=== PATIENT | female | born 1965 | race Caucasian/White ===

== ENCOUNTER 2017-08-05 03:09 | Emergency (ER) | payer OTHER ==
[2017-08-05] MEDS ORDERED: NA CHLORIDE 0.9% 1,000 ML ONE (04:01)
[2017-08-05 04:10] LABS: Absolute Lymphocytes (CBC) 2.3 K/uL (0.7-4.9); Absolute Monocytes 0.9 K/uL (0.1-1.3); Absolute Neutrophil 9.3 K/uL (1.8-8.0); Basophils % 0.7 % (0-1.3); Eosinophils % 1.5 % (0-4.4); Hematocrit 43.6 % (36.0-45.0); Lymphocytes % 17.8 % (15.3-44.8); MCH 30.4 pg (27.0-35.0); MCV 90.7 fL (80-100); MPV 7.9 fL (7.6-11.3); Monocytes % 7.3 % (3.3-12.3); RBC Red Blood Cell Count 4.81 M/uL (3.86-4.86)
[2017-08-05] MEDS ORDERED: METRONIDAZOLE 500mg IVPB 500 MG/100 ML BAG IV ONE (04:22)
[2017-08-05] MEDS ORDERED: CIPROFLOXACIN 400mg IV 400 MG/200 ML BAG IV ONE (04:22)
[2017-08-05 05:19] LABS: Urine Blood 1+ (NEG); Urine Glucose NEGATIVE (NEG); Urine Protein NEGATIVE (NEG)
[2017-08-05 05:21] LABS: Protime INR 0.95
[2017-08-05 05:25] LABS: Bicarbonate 24 mEq/L (21-31); Glucose Level 105 mg/dL (65-120); Lipase 27 U/L (22-51); Potassium 3.9 mEq/L (3.6-5.0); Sodium Level 133 mEq/L (135-145)
[2017-08-05 05:31] LABS: ALT/SGPT 22 IU/L (10-60); AST/SGOT 19 IU/L (10-42); Albumin 3.8 g/dL (3.2-5.5); Alkaline Phosphatase 76 IU/L (42-121); BUN Blood Urea Nitrogen 16 mg/dL (6-20); Bilirubin Direct < 0.1 mg/dL (0-0.2); Bilirubin Total 0.5 mg/dL (0.3-1.2); Creatine Phosphokinase 43 IU/L (22-269); Glomerular Filtration Rate > 90 mL/min (=/>90); Magnesium 1.7 mg/dL (1.8-2.5); Protein, Total 7.4 g/dL (6.0-8.3)
[2017-08-05 05:33] LABS: CKMB Creatine Kinase MB 1.1 ng/ml (0.3-4.0)
[2017-08-05] MEDS ORDERED: MAGNESIUM SULFATE 1 gm IVPB 1 GM/100 ML BAG IV ONE (06:46)
--- NOTE | 2017-08-05 07:05 | ER ---
Nurse's Notes [facility] Name: Norma Means Age: 51 yrs Sex: Female : 1965 Arrival Date: 08/05/2017 Time: 03:12 Bed 7 Private MD: Diagnosis: Abdominal tenderness;Hypomagnesemia;Constipation Presentation: 08/05 03:20 Presenting complaint: Patient states: "Started with abdominal pain two days ago. Pain ao today has radiated to the right side and right leg." Patient also complains of nausea and vomiting x1day. Transition of care: patient was not received from another setting of care. Onset of symptoms was August 03, 2016. Initial Sepsis Screen: Does the patient meet any 2 criteria? No. Patient's initial sepsis screen is negative. Does the patient have a suspected source of infection? No. Patient initial sepsis screen negative. Care prior to arrival: None. 03:20 Method Of Arrival: Ambulatory ao 03:20 Acuity: MICHAEL 3 ao Triage Assessment: 03:26 General: Appears in no apparent distress. uncomfortable, Behavior is calm, cooperative, ao appropriate for age. Pain: Complains of pain in abdomen Pain radiates to Right side and leg Pain currently is 6 out of 10 on a pain scale. EENT: No signs and/or symptoms were reported regarding the EENT system. Neuro: Level of Consciousness is awake, alert, obeys commands, Oriented to person, place, time, situation, Appropriate for age Moves all extremities. Speech is normal, Facial symmetry appears normal. Cardiovascular: No deficits noted. Capillary refill < 3 seconds Patient's skin is warm and dry. Respiratory: Airway is patent Respiratory effort is even, unlabored, Respiratory pattern is regular, symmetrical. GI: Abdomen is non-distended. GI: Reports lower abdominal pain, nausea, Pain is 6 out of 10 on a pain scale. vomiting. : No signs and/or symptoms were reported regarding the genitourinary system. Derm: No signs and/or symptoms reported regarding the dermatologic system. Musculoskeletal: No signs and/or symptoms reported regarding the musculoskeletal system. 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 - Social history:: Smoking status: Patient uses tobacco products, smokes one-half pack cigarettes per day, Patient/guardian denies using alcohol, street drugs. Screenin:28 Abuse screen: Denies threats or abuse. Denies injuries from another. Nutritional ao screening: No deficits noted. Tuberculosis screening: No symptoms or risk factors identified. Fall Risk None identified. Assessment: 03:28 General: See triage note. ao 03:29 GI: Bowel sounds present X 4 quads. Abd is soft and non tender X 4 quads. ao 04:34 Reassessment: Patient appears in no apparent distress at this time. Patient and/or ao family updated on plan of care and expected duration. Pain level reassessed. Patient is alert, oriented x 3, equal unlabored respirations, skin warm/dry/pink. Patient is in pain but refuses to take pain medication because she is afraid to get a reaction. Patient has been educated and inform to tell us if she wants pain medication. 04:48 Reassessment: Patient done with contrast at 0420. CT was notified. ao 05:38 Reassessment: Patient appears in no apparent distress at this time. Patient and/or ao family updated on plan of care and expected duration. Pain level reassessed. Patient is alert, oriented x 3, equal unlabored respirations, skin warm/dry/pink. Waiting on CT scan. 06:40 Reassessment: Patient appears in no apparent distress at this time. Patient and/or ao family updated on plan of care and expected duration. Pain level reassessed. Patient is alert, oriented x 3, equal unlabored respirations, skin warm/dry/pink. Waiting on CT report. 07:18 Reassessment: Patient appears in no apparent distress at this time. Patient and/or sg family updated on plan of care and expected duration. Pain level reassessed. Patient is alert, oriented x 3, equal unlabored respirations, skin warm/dry/pink. awaiting IV magnesium to finish infusing at this time, IV site patent, fluids infusing via IV pump, pt denies pain at the site, no swelling noted, no redness noted Patient states symptoms have not improved. Vital Signs: 03:22 BP 150 / 89; Pulse 90; Resp 16; Temp 98.2(O); Pulse Ox 94% on R/A; Weight 81.65 kg (R); ao Height 5 ft. 6 in. (167.64 cm) (R); Pain 6/10; 04:36 BP 139 / 76; Pulse 86; Resp 16; Pulse Ox 100% on R/A; Pain 0/10; ao 05:38 BP 137 / 71; Pulse 93; Resp 16; Pulse Ox 99% on R/A; Pain 6/10; ao 06:40 BP 114 / 54; Pulse 86; Resp 16; Pulse Ox 96% on R/A; ao 03:22 Body Mass Index 29.05 (81.65 kg, 167.64 cm) ao ED Course: 03:12 Patient arrived in ED. al2 03:14 Andrae Ames, RN is Primary Nurse. ao 03:22 Triage completed. ao 03:25 Arm band placed on right wrist. Patient placed in an exam room, on a stretcher, on ao pulse oximetry, Patient notified of wait time. 03:27 Christoph Martinez MD is Attending Physician. castro 03:29 Patient has correct armband on for positive identification. Pulse ox on. NIBP on. ao 03:59 X-ray completed. Portable x-ray completed in exam room. Patient tolerated procedure kw well. 03:59 XRAY Chest (1 view) In Process Unspecified. EDMS 04:11 Inserted saline lock: 22 gauge in left antecubital area, using aseptic technique. Blood ao collected. 05:50 CT Abd/Pelvis - Without Cont In Process Unspecified. EDMS 07:02 Report given to YISEL Silverman. ao 07:03 Kristel Queen MD is Referral Physician. acstro 07:18 Herrera Frederick RN is Primary Nurse. sg Administered Medications: 04:10 Drug: NS 0.9% 1000 ml Route: IV; Rate: 125 ml/hr; Site: left antecubital; ao 04:34 Drug: Flagyl 500 mg Volume: 100 ml; Route: IVPB; Rate: 200 ml/hr; Infused Over: 30 ao mins; Site: left antecubital; 06:44 Follow up: IV Status: Completed infusion ao 05:37 Drug: Cipro 400 mg Volume: 200 ml; Route: IVPB; Infused Over: 60 mins; Site: left ao antecubital; 06:44 Follow up: IV Status: Completed infusion ao 07:00 Drug: Magnesium Sulfate 1 grams Route: IVPB; Infused Over: 1 hrs; Site: left ao antecubital; 07:56 Follow up: Response: No adverse reaction; IV Status: Completed infusion sg 07:56 Not Given (Patient Refused): fentaNYL (PF) 25 mcg IVP once sg 07:56 Not Given (Patient Refused): Zofran 4 mg IVP once; over 2 minutes sg Outcome: 07:04 Discharge ordered by MD. erazo 08:02 Patient left the ED. iw Signatures: Dispatcher [employer] EDMS Herrera Frederick RN RN sg Anderson, Corey, MD MD cha Williams, Irene, RN RN iw Whitley, Kimberlee kw Ortiz, Alex, RN RN ao Love, Angelica al2
--- NOTE | 2017-08-05 07:05 | EDPHYS ---
Physician Documentation [facility] Name: Norma Means Age: 51 yrs Sex: Female : 1965 Arrival Date: 08/05/2017 Time: 03:12 Bed 7 Private MD: ED Physician Christoph Martinez HPI: 08/05 04:11 This 51 yrs old Female presents to ER via Ambulatory with complaints of castro Abdominal Pain, Nausea/Vomiting. 04:11 The patient presents to the emergency department with nausea, vomiting, abdominal pain, castro of the right upper quadrant, right lower quadrant and left lower quadrant. Onset: The symptoms/episode began/occurred yesterday. Possible causes: unknown. The symptoms are aggravated by nothing. The symptoms are alleviated by nothing. Associated signs and symptoms: Pertinent positives: abdominal pain, nausea, vomiting. Severity of symptoms: At their worst the symptoms were mild moderate in the emergency department the symptoms are unchanged. The patient has not experienced similar symptoms in the past. 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 - Social history:: Smoking status: Patient uses tobacco products, smokes one-half pack cigarettes per day, Patient/guardian denies using alcohol, street drugs. ROS: 04:12 Constitutional: Negative for fever, chills, and weight loss, Eyes: Negative for injury, castro pain, redness, and discharge, ENT: Negative for injury, pain, and discharge, Neck: Negative for injury, pain, and swelling, Cardiovascular: Negative for chest pain, palpitations, and edema, Respiratory: Negative for shortness of breath, cough, wheezing, and pleuritic chest pain, Back: Negative for injury and pain, : Negative for injury, bleeding, discharge, and swelling, MS/Extremity: Negative for injury and deformity, Skin: Negative for injury, rash, and discoloration, Neuro: Negative for headache, weakness, numbness, tingling, and seizure, Psych: Negative for depression, anxiety, suicide ideation, homicidal ideation, and hallucinations, Allergy/Immunology: Negative for hives, rash, and allergies, Endocrine: Negative for neck swelling, polydipsia, polyuria, polyphagia, and marked weight changes, Hematologic/Lymphatic: Negative for swollen nodes, abnormal bleeding, and unusual bruising. 04:12 Abdomen/GI: Positive for abdominal pain, nausea, vomiting, abdominal cramps, abdominal distension, of the right upper quadrant, left upper quadrant and right lower quadrant. Exam: 04:12 Constitutional: This is a well developed, well nourished patient who is awake, alert, castro and in no acute distress. Head/Face: Normocephalic, atraumatic. Eyes: Pupils equal round and reactive to light, extra-ocular motions intact. Lids and lashes normal. Conjunctiva and sclera are non-icteric and not injected. Cornea within normal limits. Periorbital areas with no swelling, redness, or edema. ENT: Nares patent. No nasal discharge, no septal abnormalities noted. Tympanic membranes are normal and external auditory canals are clear. Oropharynx with no redness, swelling, or masses, exudates, or evidence of obstruction, uvula midline. Mucous membranes moist. Neck: Trachea midline, no thyromegaly or masses palpated, and no cervical lymphadenopathy. Supple, full range of motion without nuchal rigidity, or vertebral point tenderness. No Meningismus. Chest/axilla: Normal chest wall appearance and motion. Nontender with no deformity. No lesions are appreciated. Cardiovascular: Regular rate and rhythm with a normal S1 and S2. No gallops, murmurs, or rubs. Normal PMI, no JVD. No pulse deficits. Respiratory: Lungs have equal breath sounds bilaterally, clear to auscultation and percussion. No rales, rhonchi or wheezes noted. No increased work of breathing, no retractions or nasal flaring. Back: No spinal tenderness. No costovertebral tenderness. Full range of motion. Skin: Warm, dry with normal turgor. Normal color with no rashes, no lesions, and no evidence of cellulitis. MS/ Extremity: Pulses equal, no cyanosis. Neurovascular intact. Full, normal range of motion. Neuro: Awake and alert, GCS 15, oriented to person, place, time, and situation. Cranial nerves II-XII grossly intact. Motor strength 5/5 in all extremities. Sensory grossly intact. Cerebellar exam normal. Normal gait. Psych: Awake, alert, with orientation to person, place and time. Behavior, mood, and affect are within normal limits. 04:12 Abdomen/GI: Inspection: distension, Bowel sounds: normal, Palpation: mild abdominal tenderness, moderate abdominal tenderness, in the right upper quadrant, right lower quadrant and left lower quadrant, Liver: no appreciated palpable abnormalities, Hernia: not appreciated. Vital Signs: 03:22 BP 150 / 89; Pulse 90; Resp 16; Temp 98.2(O); Pulse Ox 94% on R/A; Weight 81.65 kg (R); ao Height 5 ft. 6 in. (167.64 cm) (R); Pain 6/10; 04:36 BP 139 / 76; Pulse 86; Resp 16; Pulse Ox 100% on R/A; Pain 0/10; ao 05:38 BP 137 / 71; Pulse 93; Resp 16; Pulse Ox 99% on R/A; Pain 6/10; ao 06:40 BP 114 / 54; Pulse 86; Resp 16; Pulse Ox 96% on R/A; ao 03:22 Body Mass Index 29.05 (81.65 kg, 167.64 cm) ao MDM: 03:27 Patient medically screened. [facility] 04:13 Data reviewed: vital signs, nurses notes, lab test result(s), EKG, radiologic studies, [facility] CT scan, plain films. 08/05 03:42 Order name: Basic Metabolic Panel; Complete Time: 05:40 [facility] 08/05 03:42 Order name: BNP [facility] 08/05 03:42 Order name: CBC with Diff; Complete Time: 04:33 [facility] 08/05 03:42 Order name: Ckmb; Complete Time: 05:40 [facility] 08/05 03:42 Order name: CPK; Complete Time: 05:40 [facility] 08/05 03:42 Order name: LFT's; Complete Time: 05:40 [facility] 08/05 03:42 Order name: Magnesium; Complete Time: 05:40 08/05 03:42 Order name: PT-INR; Complete Time: 05:40 [facility] 08/05 03:42 Order name: Ptt, Activated; Complete Time: 05:40 [facility] 08/05 03:42 Order name: Troponin (emerg Dept Use Only); Complete Time: 05:40 [facility] 08/05 03:42 Order name: Lipase; Complete Time: 05:40 [facility] 08/05 03:42 Order name: Urine Culture [facility] 08/05 04:47 Order name: Urine Dipstick--Ancillary (enter results); Complete Time: 05:40 08/05 04:47 Order name: Urine --Ancillary (enter results); Complete Time: 05:40 08/05 03:42 Order name: Urine Test (obtain specimen); Complete Time: 04:47 [facility] 08/05 03:42 Order name: XRAY Chest (1 view) [facility] 08/05 03:42 Order name: EKG; Complete Time: 03:43 [facility] 08/05 03:42 Order name: Cardiac monitoring; Complete Time: 04:34 [facility] 08/05 03:42 Order name: EKG - Nurse/Tech; Complete Time: 03:59 [facility] 08/05 03:42 Order name: IV Saline Lock; Complete Time: 03:59 [facility] 08/05 03:42 Order name: Labs collected and sent; Complete Time: 03:59 [facility] 08/05 03:42 Order name: O2 Per Protocol; Complete Time: 03:59 [facility] 08/05 03:42 Order name: O2 Sat Monitoring; Complete Time: 03:59 [facility] 08/05 03:42 Order name: CT Abd/Pelvis - Without Cont castro 08/05 03:42 Order name: Urine Dipstick-Ancillary (obtain specimen); Complete Time: 04:47 [facility] Administered Medications: 04:10 Drug: NS 0.9% 1000 ml Route: IV; Rate: 125 ml/hr; Site: left antecubital; ao 04:34 Drug: Flagyl 500 mg Volume: 100 ml; Route: IVPB; Rate: 200 ml/hr; Infused Over: 30 ao mins; Site: left antecubital; 06:44 Follow up: IV Status: Completed infusion ao 05:37 Drug: Cipro 400 mg Volume: 200 ml; Route: IVPB; Infused Over: 60 mins; Site: left ao antecubital; 06:44 Follow up: IV Status: Completed infusion ao 07:00 Drug: Magnesium Sulfate 1 grams Route: IVPB; Infused Over: 1 hrs; Site: left ao antecubital; 07:56 Follow up: Response: No adverse reaction; IV Status: Completed infusion sg 07:56 Not Given (Patient Refused): fentaNYL (PF) 25 mcg IVP once sg 07:56 Not Given (Patient Refused): Zofran 4 mg IVP once; over 2 minutes sg Disposition: 08/05/17 07:04 Discharged to Home. Impression: Abdominal tenderness, Hypomagnesemia, Constipation. - Condition is Stable. - Discharge Instructions: Abdominal Pain, Adult, Constipation, Adult, Nausea and Vomiting, Abdominal Pain, Adult, [id number]. - Prescriptions for Bentyl 20 mg Oral Tablet - take 1 tablet by ORAL route every 6 hours As needed; 20 tablet. Flagyl 500 mg Oral Tablet - take 1 tablet by ORAL route every 12 hours for 7 days; 14 tablet. Zofran 4 mg Oral Tablet - take 1 tablet by ORAL route every 12 hours As needed; 20 tablet. Cipro 500 mg Oral Tablet - take 1 tablet by ORAL route every 12 hours for 7 days; 14 tablet. - Medication Reconciliation Form, Thank You Letter, Antibiotic Education, Prescription Opioid Use form. - Follow up: Private Physician; When: 2 - 3 days; Reason: Recheck today's complaints, Continuance of care, Re-evaluation by your physician. Follow up: Kristel Queen MD; When: 2 - 3 days; Reason: Recheck today's complaints, Continuance of care, Re-evaluation by your physician. - Problem is new. - Symptoms have improved. Signatures: Dispatcher [employer] Christoph Watkins MD MD cha Williams, Irene, RN Andrae Omer RN Herrera Marroquin RN sg
--- NOTE | 2017-08-05 08:26 | EKG ---
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
--- NOTE | 2017-08-05 08:57 | RAD REPORT ---
EXAM DESCRIPTION: RAD - Chest Single View - 08/05/2017 4:01 am CLINICAL HISTORY: Abdominal pain, cough COMPARISON: September 2014 TECHNIQUE: AP portable chest image was obtained 0351 hours . FINDINGS: No peripheral mass or consolidation seen. No failure or volume overload. Lung markings are prominent but stable. Heart and vasculature are normal. No measurable pleural effusion and no pneumo thorax. No gross bony abnormality seen. No acute aortic findings suspected. IMPRESSION: No acute cardiopulmonary process. Chest is similar to the September 2014 study.
--- NOTE | 2017-08-05 09:11 | RAD REPORT ---
EXAM DESCRIPTION: CT - Abdomen Pelvis Wo Contrast - 08/05/2017 7:04 am CLINICAL HISTORY: Abdominal pain radiating to the right pelvis and leg, history of iodine contrast a llergy, cervical cancer A preliminary written report was provided at the time of the study, and the report was reviewed prio r to final dictation. COMPARISON: CT study 2009 TECHNIQUE: Axial [address] imaging of the abdomen and pelvis was performed without IV contrast. No IV contrast was given because of allergy, abnormal renal function, patient refusal or physician re quest. Oral contrast was given. All CT scans are performed using dose optimization technique as appropriate and may include automated exposure control or mA/KV adjustment according to patient size. FINDINGS: A 12 millimeter nodule is present in the posteromedial right lung base. There is stranding adjacent to this nodule. There is minimal stranding in the left base without nodularity. The nodular focus is most likely scarring. This is new from 2009. Malignant etiology is low in likelihood but no t excluded. The lower third of the lung guzmán are clear of any other mass or nodule. If no more rece nt imaging available to establish stability, short-term follow-up could be obtained with CT imaging i n 3-6 months. If patient has any risk factors for lung cancer, PET-CT imaging could be obtained to as sess metabolic activity in this region and to evaluate any other abnormal lung parenchymal finding. The liver, spleen and pancreas show no suspicious findings on non-contrast imaging. Cholecystectomy c lips are present. No biliary tree dilatation. No hydronephrosis of either kidney. No obstructing or nonobstructing calculi. No calculi within the m ostly contracted urinary bladder. Cortical thinning is seen in the lateral mid left kidney probably f rom old infectious insult. Cystic areas within each renal hilum are probably parapelvic cysts. Renal function cannot be assessed without contrast. Isodense masses and pyelonephritis cannot be assessed. No perinephric stranding. No significant adrenal finding. Uterus and ovaries show no suspicious findings. No gastric dilatation or gastric wall thickening. No colon dilatation. Along the anti mesenteric johnny in of the ascending colon (Image 49/95) there is minimal edema. Small air collection is present along the border of the wall. Cohen of the colon are otherwise unremarkable. The appendix is not clearly d efined. No evidence for appendicitis. No free air, free fluid or pneumatosis. No other area of inflam matory stranding. No hernia, mass or bulky lymphadenopathy. Disc and bony degenerative changes. No acute or destructive bone process. IMPRESSION: Suspected small focus of epiploic appendagitis along the lateral margin of the ascending colon. This could be the source of the patient's pain. No other abnormality seen to explain right lower quadrant symptoms. Approximately 12 millimeter nodular focus in the posterior gutter on the right. This is probably part of a scarring process. If there are no old studies since 2009 that can establish stability, continue d close follow-up is needed. A 3-[address] chest follow-up could be performed. If there are clinical concerns are risk factors for malignancy, PET-CT imaging could be performed. Multiple renal parapelvic cysts are present increased since 2009. No hydronephrosis, obstructing calc ulus or acute finding. Status post cholecystectomy with no biliary tree dilatation. Full assessment is limited is the absence of IV contrast.
== END 2017-08-05 08:02 | disposition home or self-care (01) ==
LOC: ER 03:09
DX: K59.00 Constipation, unspecified (principal); E83.42 Hypomagnesemia; F17.210 Nicotine dependence, cigarettes, uncomplicated; Z85.41 Personal history of malignant neoplasm of cervix uteri; Z88.0 Allergy status to penicillin; Z88.5 Allergy status to narcotic agent; Z88.6 Allergy status to analgesic agent; Z91.048 Other nonmedicinal substance allergy status
CPT/HCPCS: 36415; 71045; 74176; 80048; 80076; 81003; 81025; 82550; 82553; 83690; 83735; 83880; 84484; 85025; 85610; 85730; 87086; 87088; 93005; 96365; 96367; 99284; J0744; J3475; J7030

== ENCOUNTER 2019-01-04 21:22 | Emergency (ER) | payer OTHER, SELFPAY ==
--- OUTSIDE RECORDS SUMMARY | 2019-01-04 21:25 | XMS REPORT ---
:1965 [facility] Address [address] [place] [address] [address] Care Team Providers Name Role Phone Unavailable Unavailable Unavailable Problems This patient has no known problems. Allergies, Adverse Reactions, Alerts This patient has no known allergies or adverse reactions. Medications This patient has no known medications.
--- NOTE | 2019-01-04 23:37 | EDPHYS ---
Physician Documentation [facility] Name: Norma Means Age: 53 yrs Sex: Female : 1965 Arrival Date: 01/04/2019 Time: 21:26 Bed 5 Private MD: ED Physician Rao Pantoja HPI: 01/04 22:34 This 53 yrs old Female presents to ER via Ambulatory with complaints of Back jr8 Pain, Painful Cough. 22:34 Onset: The symptoms/episode began/occurred yesterday. Associated signs and symptoms: jr8 Pertinent positives: fever. Modifying factors: The patient symptoms are alleviated by nothing, the patient symptoms are aggravated by nothing. Severity of pain: At its worst the pain was mild. pt reports that she has had a lot of mucus production, cough, since yesterday. Feeling worse today with fever at home. Son ill with similar symptoms. 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 - Social history:: Smoking status: Patient uses tobacco products, smokes one pack cigarettes per day. - Ebola Screening: : No symptoms or risks identified at this time. ROS: 22:34 Constitutional: Negative for fever, chills, and weight loss, Eyes: Negative for injury, jr8 pain, redness, and discharge, ENT: Negative for injury, pain, and discharge, Neck: Negative for injury, pain, and swelling, Cardiovascular: Negative for chest pain, palpitations, and edema, Abdomen/GI: Negative for abdominal pain, nausea, vomiting, diarrhea, and constipation, Back: Negative for injury and pain, MS/Extremity: Negative for injury and deformity, Skin: Negative for injury, rash, and discoloration, Neuro: Negative for headache, weakness, numbness, tingling, and seizure. 22:34 Respiratory: Positive for cough, with clear sputum. Exam: 22:34 Constitutional: This is a well developed, well nourished patient who is awake, alert, jr8 and in no acute distress. Head/Face: Normocephalic, atraumatic. Eyes: Pupils equal round and reactive to light, extra-ocular motions intact. Lids and lashes normal. Conjunctiva and sclera are non-icteric and not injected. Cornea within normal limits. Periorbital areas with no swelling, redness, or edema. ENT: Nares patent. No nasal discharge, no septal abnormalities noted. Tympanic membranes are normal and external auditory canals are clear. Oropharynx with no redness, swelling, or masses, exudates, or evidence of obstruction, uvula midline. Mucous membranes moist. Neck: Trachea midline, no thyromegaly or masses palpated, and no cervical lymphadenopathy. Supple, full range of motion without nuchal rigidity, or vertebral point tenderness. No Meningismus. Chest/axilla: Normal chest wall appearance and motion. Nontender with no deformity. No lesions are appreciated. Cardiovascular: Regular rate and rhythm with a normal S1 and S2. No gallops, murmurs, or rubs. Normal PMI, no JVD. No pulse deficits. Respiratory: Lungs have equal breath sounds bilaterally, clear to auscultation and percussion. No rales, rhonchi or wheezes noted. No increased work of breathing, no retractions or nasal flaring. Abdomen/GI: Soft, non-tender, with normal bowel sounds. No distension or tympany. No guarding or rebound. No evidence of tenderness throughout. Skin: Warm, dry with normal turgor. Normal color with no rashes, no lesions, and no evidence of cellulitis. MS/ Extremity: Pulses equal, no cyanosis. Neurovascular intact. Full, normal range of motion. Neuro: Awake and alert, GCS 15, oriented to person, place, time, and situation. Cranial nerves II-XII grossly intact. Motor strength 5/5 in all extremities. Sensory grossly intact. Cerebellar exam normal. Normal gait. Vital Signs: 21:57 BP 151 / 70; Pulse 92; Resp 18; Temp 98.8(O); Pulse Ox 97% on R/A; Weight 90.72 kg; lp1 Height 5 ft. 6 in. (167.64 cm); Pain 0/10; 21:57 Body Mass Index 32.28 (90.72 kg, 167.64 cm) lp1 MDM: 21:48 Patient medically screened. jr8 23:36 Data reviewed: vital signs, nurses notes, lab test result(s), radiologic studies, plain jr8 films. Data interpreted: Pulse oximetry: on room air is 97 %. Interpretation: normal. Counseling: I had a detailed discussion with the patient and/or guardian regarding: the historical points, exam findings, and any diagnostic results supporting the discharge/admit diagnosis, lab results, radiology results, the need for outpatient follow up, a family practitioner, to return to the emergency department if symptoms worsen or persist or if there are any questions or concerns that arise at home. 01/04 22:04 Order name: Influenza Screen (a \T\ B); Complete Time: 23:34 jr8 01/04 22:04 Order name: XRAY Chest (1 view) jr Administered Medications: No medications were administered Disposition: 01/05 07:51 Co-signature as Attending Physician, Rao Pantoja MD I agree with the assessment and 4 plan of care. Disposition: 01/04/19 23:36 Discharged to Home. Impression: Acute upper respiratory infection, unspecified. - Condition is Stable. - Discharge Instructions: Upper Respiratory Infection, Adult. - Prescriptions for Prednisone 20 mg Oral Tablet - take 1 tablet by ORAL route once daily for 5 days; 5 tablet. Claritin- D 24 Hour 10-240 mg Oral Tablet Sustained Release 24 hr - take 1 tablet by ORAL route once daily As needed; 20 tablet. - Medication Reconciliation Form, Thank You Letter, Antibiotic Education, Prescription Opioid Use form. - Work release form (01/04/19 23:49). [facility] - Follow up: Private Physician; When: 5 - 6 days; Reason: Recheck today's complaints, Continuance of care, Re-evaluation by your physician. - Problem is new. - Symptoms have improved. Signatures: Dispatcher [employer] EDShelley Hoff RN RN lp1 Ramses Solis PA PA 8 Rao Pantoja MD MD tw4 Corrections: (The following items were deleted from the chart) 01/04 23:44 23:36 01/04/2019 23:36 Discharged to Home. Impression: Acute upper respiratory lp1 infection, unspecified. Condition is Stable. Forms are Medication Reconciliation Form, Thank You Letter, Antibiotic Education, Prescription Opioid Use. Follow up: Private Physician; When: 5 - 6 days; Reason: Recheck today's complaints, Continuance of care, Re-evaluation by your physician. Problem is new. Symptoms have improved. jr8
--- NOTE | 2019-01-04 23:37 | ER ---
Nurse's Notes 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 Transition of care: patient was not received from another setting of care. Onset of symptoms was January 04, 2019. Risk Assessment: Do you want to hurt yourself or someone else? Patient reports no desire to harm self or others. Initial Sepsis Screen: Does the patient meet any 2 criteria? No. Patient's initial sepsis screen is negative. Does the patient have a suspected source of infection? No. Patient's initial sepsis screen is negative. Care prior to arrival: None. 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 - Social history:: Smoking status: Patient uses tobacco products, smokes one pack cigarettes per day. - Ebola Screening: : No symptoms or risks identified at this time. Screenin:59 Abuse screen: Denies threats or abuse. Denies injuries from another. Nutritional lp1 screening: No deficits noted. Tuberculosis screening: No symptoms or risk factors identified. Fall Risk None identified. Assessment: 21:59 General: Appears in no apparent distress. Behavior is calm, cooperative, appropriate lp1 for age. Pain: Complains of pain in back Aggravated by coughing. Neuro: Level of Consciousness is awake, alert, obeys commands, Oriented to person, place, time, situation. Cardiovascular: Patient's skin is warm and dry. Respiratory: Respiratory effort is even, unlabored, Breath sounds are clear bilaterally. GI: Abdomen is non-distended. : No signs and/or symptoms were reported regarding the genitourinary system. EENT: Reports nasal congestion nasal discharge that is watery. Derm: Skin is pink, warm \T\ dry. Musculoskeletal: No deficits noted. 23:03 Reassessment: Patient appears in no apparent distress at this time. No changes from lp1 previously documented assessment. Waiting for radiology. Vital Signs: 21:57 BP 151 / 70; Pulse 92; Resp 18; Temp 98.8(O); Pulse Ox 97% on R/A; Weight 90.72 kg; lp1 Height 5 ft. 6 in. (167.64 cm); Pain 0/10; 21:57 Body Mass Index 32.28 (90.72 kg, 167.64 cm) lp1 ED Course: 21:26 Patient arrived in ED. cl3 21:45 Shelley Lopez, YISEL is Primary Nurse. lp1 21:46 Ramses Solis PA is PHCP. jr8 21:46 Rao Pantoja MD is Attending Physician. jr8 21:57 Triage completed. lp1 21:57 Arm band placed on. lp1 22:01 Patient has correct armband on for positive identification. lp1 22:19 Flu and/or RSV swab sent to lab. lp1 23:03 No provider procedures requiring assistance completed. Patient did not have IV access lp1 during this emergency room visit. 23:55 XRAY Chest (1 view) In Process Unspecified. EDMS Administered Medications: No medications were administered Outcome: 23:36 Discharge ordered by . jr8 23:43 Discharged to home ambulatory, with friend. lp1 23:43 Condition: good 23:43 Discharge instructions given to patient, Instructed on discharge instructions, follow up and referral plans. medication usage, Demonstrated understanding of instructions, follow-up care, medications, Prescriptions given X 3. 23:44 Patient left the ED. lp1 Signatures: Dispatcher [employer] EDMS Shelley Lopez RN RN lp1 Ramses Solis PA PA jr8 Ranulfo Rg cl3 Corrections: (The following items were deleted from the chart) 23:03 23:03 Reassessment: Patient appears in no apparent distress at this time. No changes lp1 from previously documented assessment. lp1
[2019-01-05 01:49] VITALS: BP 151/70; TEMP 98.8; O2SAT 97
--- NOTE | 2019-01-05 08:15 | RAD REPORT ---
EXAM DESCRIPTION: RAD - Chest Single View - 01/04/2019 11:53 pm CLINICAL HISTORY: COUGH Chest pain. COMPARISON: Chest Single View dated 08/05/2017; CHEST PA AND LAT 2 VIEW dated 10/17/2014; CHEST SINGLE VIEW dated 05/30/2014; CHEST SINGLE VIEW dated 03/03/2010 FINDINGS: Portable technique limits examination quality. The lungs are grossly clear. The heart is upper limit of normal in size. No displaced fractures.Old l eft clavicle fracture. IMPRESSION: No acute intrathoracic process suspected.
== END 2019-01-04 23:44 | disposition home or self-care (01) ==
LOC: ER 21:22
DX: J06.9 Acute upper respiratory infection, unspecified (principal); F17.210 Nicotine dependence, cigarettes, uncomplicated; Z85.41 Personal history of malignant neoplasm of cervix uteri; Z88.0 Allergy status to penicillin; Z88.1 Allergy status to other antibiotic agents; Z88.3 Allergy status to other anti-infective agents; Z88.5 Allergy status to narcotic agent; Z88.6 Allergy status to analgesic agent; Z88.8 Allergy status to other drugs, medicaments and biological substances
CPT/HCPCS: 71045; 87804; 99283

== ENCOUNTER 2020-10-11 21:03 | Emergency (ER) | payer SELFPAY ==
--- OUTSIDE RECORDS SUMMARY | 2020-10-11 21:05 | XMS REPORT | Continuity of Care Document ---
:1965 Author Organization [facility] t Address [address] [place] [address] Care Team Providers Name Role Phone Lab, Fam Pob I Attending Clinician Unavailable Doctor Unassigned, Name Attending Clinician Unavailable Inna BERNABE, Chelsea Attending Clinician Problems This patient has no known problems. Allergies, Adverse Reactions, Alerts This patient has no known allergies or adverse reactions. Medications This patient has no known medications. Procedures This patient has no known procedures. Encounters Start End Encounter Admission Attending Care Care Encounter Source Date/Time Date/Time Type Type Clinicians Facility Department ID 2020-05-19 2020-05-19 Laboratory Lab, [facility] [id number] 11:44:27 12:04:27 Only Fam Pob I Health [id number] [place] [id number] Professio [phone] [address] 2020-05-19 2020-05-19 Letter Doctor ROSELINE [id number] 00:00:00 00:00:00 (Out) Unassigned, YANIQUE [id number] [place] [id number] 2019-07-12 2019-07-12 Telephone JOSELYN Keith [id number] 00:00:00 00:00:00 [facility] [id number] [place] [id number] Professio [phone] [facility] [address] Results This patient has no known results.
--- NOTE | 2020-10-11 21:52 | ER ---
Nurse's Notes [facility] [place] [place] Name: Norma Means Age: 54 yrs Sex: Female : 1965 Arrival Date: 10/11/2020 Time: 21:04 Bed 5 Private MD: Diagnosis: Panic disorder [episodic paroxysmal anxiety] without agoraphobia Presentation: 10/11 21:11 Chief complaint: Patient states: "Having some issues/drama at home and I felt my chest vg1 tightening and felt shortness of breath and I began sweating and my heart racing. I took my blood pressure at home 175/107 and heart rate of 106.". Coronavirus screen: Client denies travel out of the [place] in the last 14 days. Ebola Screen: Patient negative for fever greater than or equal to 101.5 degrees Fahrenheit, and additional compatible Ebola Virus Disease symptoms. Initial Sepsis Screen: Does the patient meet any 2 criteria? No. Patient's initial sepsis screen is negative. Does the patient have a suspected source of infection? No. Patient's initial sepsis screen is negative. Risk Assessment: Do you want to hurt yourself or someone else? Patient reports no desire to harm self or others. Onset of symptoms was October 11, 2020. 21:11 Method Of Arrival: Ambulatory vg1 21:11 Acuity: MICHAEL 3 vg1 Triage Assessment: 21:15 General: Appears in no apparent distress. uncomfortable, Behavior is cooperative, vg1 anxious. Pain: Complains of pain in chest. Cardiovascular: Patient's skin is warm and dry. 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 - Social history:: Smoking status: Patient reports the use of cigarette tobacco products, smokes one pack cigarettes per day. Screenin:53 Abuse screen: Denies threats or abuse. Denies injuries from another. Nutritional ad5 screening: No deficits noted. Tuberculosis screening: No symptoms or risk factors identified. Fall Risk None identified. Assessment: 21:52 General: Appears in no apparent distress. comfortable, Behavior is calm, cooperative. ad5 Pain: Denies pain. Neuro: Level of Consciousness is awake, alert, obeys commands, Oriented to person, place, time, situation, Appropriate for age. Cardiovascular: Reports "anxious", reports recent stress at home; states "just want to make sure everything is ok" Heart tones present Capillary refill < 3 seconds Patient's skin is warm and dry. Rhythm is regular. Respiratory: No deficits noted. Airway is patent Respiratory effort is even, unlabored, Respiratory pattern is regular, symmetrical. GI: No deficits noted. No signs and/or symptoms were reported involving the gastrointestinal system. : No deficits noted. No signs and/or symptoms were reported regarding the genitourinary system. Derm: Skin is pink, warm \\T\\ dry. Vital Signs: 21:11 BP 165 / 76; Pulse 103; Resp 18; Temp 99.2; Pulse Ox 98% ; Weight 90.72 kg; Height 5 vg1 ft. 6 in. (167.64 cm); Pain 0/10; 21:59 BP 159 / 91; Pulse 99; Resp 18 S; Pulse Ox 97% on R/A; ad5 21:11 Body Mass Index 32.28 (90.72 kg, 167.64 cm) vg1 ED Course: 21:04 Patient arrived in ED. cf2 21:12 Javan Garcia is Primary Nurse. ad5 21:14 Triage completed. vg1 21:15 Arm band placed on. vg1 21:19 Ramses Solis PA is PHCP. jr8 21:19 Christoph Martinez MD is Attending Physician. jr8 21:54 Patient has correct armband on for positive identification. Bed in low position. Call ad5 light in reach. Side rails up X 1. Pulse ox on. NIBP on. 21:54 Patient did not have IV access during this emergency room visit. ad5 21:54 No provider procedures requiring assistance completed. ad5 21:54 EKG done, by ED staff, reviewed by Ramses RODRIGUEZ. ad5 Administered Medications: No medications were administered Outcome: 21:51 Discharge ordered by MD. blank :59 Discharged to home ambulatory. ad5 21:59 Condition: stable 21:59 Discharge instructions given to patient, Instructed on discharge instructions, follow up and referral plans. Demonstrated understanding of instructions, follow-up care. 22:00 Patient left the ED. ad5 Signatures: Ramses Solis PA PA jr8 Jarad Sequeira cf2 Ailyn Solis, RN RN vg1 Javan Garcia ad5
--- NOTE | 2020-10-11 21:52 | EDPHYS ---
Physician Documentation [facility] Name: Norma Rocha Age: 54 yrs Sex: Female : 1965 Arrival Date: 10/11/2020 Time: 21:04 Bed 5 Private MD: SHIRLEY Physician Christoph Martinez HPI: 10/11 21:54 This 54 yrs old Female presents to ER via Ambulatory with complaints of Chest jr8 Pain, Anxiety, Shortness Of Breath. 21:54 Patient stated that she has been having ongoing problems at her home with a mental jr8 disabled child who has severe psychiatric tendencies. Stated that child had another episode today and could not take it any longer. Started to have anxiety and panic attack. Now feeling better but was having occasional palpitations . Severity of symptoms: At their worst the symptoms were moderate in the emergency department the symptoms have improved mildly. The patient has experienced similar episodes in the past, a few times. The patient has not recently seen a physician. 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 - Social history:: Smoking status: Patient reports the use of cigarette tobacco products, smokes one pack cigarettes per day. ROS: 21:54 Eyes: Negative for injury, pain, redness, and discharge, ENT: Negative for injury, jr8 pain, and discharge, Neck: Negative for injury, pain, and swelling, Respiratory: Negative for shortness of breath, cough, wheezing, and pleuritic chest pain, Abdomen/GI: Negative for abdominal pain, nausea, vomiting, diarrhea, and constipation, Back: Negative for injury and pain, MS/Extremity: Negative for injury and deformity, Skin: Negative for injury, rash, and discoloration, Neuro: Negative for headache, weakness, numbness, tingling, and seizure. 21:54 Cardiovascular: Positive for palpitations. 21:54 Psych: Positive for anxiety. Exam: 21:54 Constitutional: This is a well developed, well nourished patient who is awake, alert, jr8 and in no acute distress. Chest/axilla: Normal chest wall appearance and motion. Nontender with no deformity. No lesions are appreciated. Cardiovascular: Tachycardic with a normal S1 and S2. No gallops, murmurs, or rubs. Normal PMI, no JVD. No pulse deficits. Respiratory: Lungs have equal breath sounds bilaterally, clear to auscultation and percussion. No rales, rhonchi or wheezes noted. No increased work of breathing, no retractions or nasal flaring. Abdomen/GI: Soft, non-tender, with normal bowel sounds. No distension or tympany. No guarding or rebound. No evidence of tenderness throughout. Back: No spinal tenderness. No costovertebral tenderness. Full range of motion. Skin: Warm, dry with normal turgor. Normal color with no rashes, no lesions, and no evidence of cellulitis. MS/ Extremity: Pulses equal, no cyanosis. Neurovascular intact. Full, normal range of motion. Neuro: Awake and alert, GCS 15, oriented to person, place, time, and situation. Cranial nerves II-XII grossly intact. Motor strength 5/5 in all extremities. Sensory grossly intact. Cerebellar exam normal. Normal gait. Psych: Awake, alert, with orientation to person, place and time. Behavior, mood, and affect are within normal limits. Vital Signs: 21:11 BP 165 / 76; Pulse 103; Resp 18; Temp 99.2; Pulse Ox 98% ; Weight 90.72 kg; Height 5 vg1 ft. 6 in. (167.64 cm); Pain 0/10; 21:59 BP 159 / 91; Pulse 99; Resp 18 S; Pulse Ox 97% on R/A; ad5 21:11 Body Mass Index 32.28 (90.72 kg, 167.64 cm) vg1 MDM: 21:42 Patient medically screened. [facility] 21:49 Data reviewed: vital signs, nurses notes, EKG, and as a result, I will discharge jr8 patient. Data interpreted: Pulse oximetry: on room air is 98 %. Interpretation: normal. Counseling: I had a detailed discussion with the patient and/or guardian regarding: the historical points, exam findings, and any diagnostic results supporting the discharge/admit diagnosis, the need for outpatient follow up, a family practitioner, to return to the emergency department if symptoms worsen or persist or if there are any questions or concerns that arise at home. 10/11 21:35 Order name: Basic Metabolic Panel em 10/11 21:35 Order name: CBC with Diff em 10/11 21:35 Order name: LFT's em 10/11 21:35 Order name: Magnesium em 10/11 21:35 Order name: NT PRO-BNP em 10/11 20:35 Order name: PT-INR em 10/11 21:35 Order name: Troponin (emerg Dept Use Only) em 10/11 20:35 Order name: EKG; Complete Time: 21:36 em 10/11 20:35 Order name: EKG - Nurse/Tech; Complete Time: 21:45 em Administered Medications: No medications were administered Disposition: 10/11/20 21:51 Discharged to Home. Impression: Panic disorder [episodic paroxysmal anxiety] without agoraphobia. - Condition is Stable. - Discharge Instructions: Panic Attacks. - Medication Reconciliation Form, Thank You Letter, Antibiotic Education, Prescription Opioid Use form. - Follow up: Private Physician; When: 2 - 3 days; Reason: Recheck today's complaints, Continuance of care, Re-evaluation by your physician. - Problem is new. - Symptoms have improved. Signatures: Dispatcher [employer] EDMA Christoph Martinez MD MD cha Munoz, Edgar, RN RN em Ramses Solis PA PA jr8 Ailyn Solis RN RN vg1 Javan Garcia ad5 Corrections: (The following items were deleted from the chart) 21:45 21:35 Cardiac monitoring ordered. em em :45 21:35 IV Saline Lock ordered. em em 21:45 21:35 Labs collected and sent ordered. em em 21:45 21:35 Oxygen Per Protocol ordered. em em 21:45 21:35 O2 Sat Monitoring ordered. em em 22:00 21:51 10/11/2020 21:51 Discharged to Home. Impression: Panic disorder [episodic ad5 paroxysmal anxiety] without agoraphobia. Condition is Stable. Forms are Medication Reconciliation Form, Thank You Letter, Antibiotic Education, Prescription Opioid Use. Follow up: Private Physician; When: 2 - 3 days; Reason: Recheck today's complaints, Continuance of care, Re-evaluation by your physician. Problem is new. Symptoms have improved. jr8
[2020-10-11 22:19] VITALS: TEMP 99.2
[2020-10-11 22:20] VITALS: BP 159/91; O2SAT 97
--- NOTE | 2020-10-12 10:33 | EKG ---
Test Date: 2020-10-11 Test Time: 21:46:49 Transaction Advisory Services Manager: AVI MEASUREMENT RESULTS: Intervals: Rate: 97 GA: 128 QRSD: 88 QT: 356 QTc: 452 [place]: P: 54 GA: 128 QRS: -36 T: 12 INTERPRETIVE STATEMENTS: Normal sinus rhythm Left axis deviation Voltage criteria for left ventricular hypertrophy Abnormal ECG Compared to ECG 08/05/2017 04:13:38 No significant changes Electronically Signed On 10-12-20 10:31:34 CDT by Shayne Live
== END 2020-10-11 22:00 | disposition home or self-care (01) ==
LOC: ER 21:03
DX: F41.0 Panic disorder [episodic paroxysmal anxiety] (principal); F17.210 Nicotine dependence, cigarettes, uncomplicated; Z88.0 Allergy status to penicillin; Z88.1 Allergy status to other antibiotic agents; Z88.3 Allergy status to other anti-infective agents; Z88.5 Allergy status to narcotic agent; Z88.6 Allergy status to analgesic agent; Z88.8 Allergy status to other drugs, medicaments and biological substances; Z91.048 Other nonmedicinal substance allergy status
CPT/HCPCS: 93005

== ENCOUNTER 2021-03-24 18:18 | Emergency (ER) | payer SELFPAY ==
--- OUTSIDE RECORDS SUMMARY | 2021-03-24 18:21 | XMS REPORT | Continuity of Care Document ---
:1965 Author Organization [facility] t Address [address] [place] [address] Care Team Providers Name Role Phone Lab, Fam Pob I Attending Clinician Unavailable Dayami RODRIGUEZ, A Attending Clinician Doctor Unassigned, Name Attending Clinician Unavailable Inna BERNABE, A Attending Clinician Payers Payer Name Policy Type Policy Number Effective Date Expiration Date S ource Problems Condition Condition Condition Status Onset Resolution Last Treating Co mments Source Name Details Category Date Date Treatment Clinician Date History of History of Disease Active U nivers loop loop 3-23 [place] excision excision 00 Medica l procedure procedure Bran ch (LEEP) (LEEP) History of History of Disease Active U nivers abnormal abnormal 3-23 ity of cervical cervical 00:00: [place] Pap smear Pap smear 00 [facility] Branch History of History of Disease Active U nivers cervical cervical 3-15 ity of cancer cancer 00:00: [place] 00 Medical Branch Acute Acute Disease Active 2018- Univers nonseasona nonseasona 3-15 it y of l allergic l allergic [place] rhinitis rhinitis 00 Medica l due to due to Branch other other allergen allergen Allergies, Adverse Reactions, Alerts Allergy Allergy Status Severity Reaction(s) Onset Inactive Treating Comm ents Source Name Type Date Date Clinician Morphine Propensi Active Nausea Univer s ty to and/or 7-19 ity of adverse Vomiting 00:00: [place] reaction 00 Medical s Branch Penicill Propensi Active Unknown - 2018-0 Itching Un juana ins ty to See comments 7-19 and ity of adverse 00:00: paresthes [place] reaction 00 ias Medical s Branch IODINE DRUG Active High Anaphylaxis 2018-0 Unive rs INGREDI - ity of 00:00: [place] 00 Medical Branch AMOXICIL DRUG Active Hives 2018-0 Univers STEFF-POT 7- ity of CLAVULAN 00:00: [place] ATE 00 Medical Branch CLINDAMY DRUG Active Unknown-Cmnt 2018-0 Un juana BECKIE INGREDI 7- ity of 00:00: [place] 00 Medical Branch Amoxicil Propensi Active Hives 2018-0 Univer s steff-Pot ty to 11-06 ity of Clavulan adverse 00:00: [place] ate reaction 00 Medical s Branch CODEINE DRUG Active Unknown-Cmnt 2018-0 Uni vers INGREDI 11-06 ity of 00:00: [place] 00 Medical Branch MEPERIDI DRUG Active N/V 2018-0 Univers NE HCL INGREDI 11-06 ity of 00:00: [place] 00 Medical Branch IBUPROFE DRUG Active Unknown-Cmnt 2018-0 Un juana N INGREDI 11-06 ity of 00:00: [place] 00 Medical Branch MORPHINE DRUG Active N/V 2018-0 Univers INGREDI 11-06 ity of 00:00: [place] 00 Medical Branch PENICILL Drug Active Unknown-Cmnt 2018-0 Un juana INS Class - ity of 00:00: [place] 00 Medical Branch Clindamy Propensi Active Unknown - 2018-0 Itching Un juana beckie ty to See comments 7 and ity of adverse 00:00: parathesi [place] reaction 00 as Medical s Branch Codeine Propensi Active Unknown - 2018-0 [place] Univ ers ty to See comments 7 out ity of adverse 00:00: [place] reaction 00 Medical s Branch Meperidi Propensi Active Nausea 2018-0 Univer s ne Hcl ty to and/or 11-06 ity of adverse Vomiting 00:00: [place] reaction 00 Medical s Branch Ibuprofe Propensi Active Unknown - 2018-0 parathesi Univers n ty to See comments 11-06 as ity of adverse 00:00: [place] reaction 00 Medical s Branch Iodine Propensi Active Anaphylaxis 2018-0 And Uni vers ty to 11-06 shellfish ity of adverse 00:00: [place] reaction Medical s [place] Social History Social Habit Start Date Stop Date Quantity Comments Source History of tobacco Cigarette Smoker University of use [facility] Sex Assigned At Universit y of [facility] Exposure to Yes University SARS-CoV-2 (event) [facility] Cigarettes smoked 2018-06-29 2018-06-29 Univers ity of current (pack per 00:00:00 00:00:00 ) - Reported Branch Cigarette 2018-06-29 2018-06-29 University of pack-years 00:00:00 00:00:00 [facility] Alcohol intake 2018-06-29 2018-06-29 Current University of 00:00:00 00:00:00 non-drinker of [facility] alcohol [place] (finding) Tobacco use and 2018-06-29 2018-06-29 Never used [facility] y of exposure 00:00:00 00:00:00 [facility] Smoking Status Start Date Stop Date Source Current every day smoker 2018-06-29 00:00:00 Uni versity of [facility] Medications Ordered Filled Start Stop Current Ordering Indication Dosage Frequency Signature Comments Components Source Medication Medication Date Date Medication? Clinician (SIG) Name Name azithjerardoyci 2019 Yes [id number] 250mg Take 1 Univers n 250 mg 3-11 tablet by ity of tablet 00:00: mouth [place] SEE-INSTRU Medical CTIONS. Branch Take 500 mg day 1, then 250 mg days 2 to 5. promethazin Yes [id number] 5mL Take 5 mL Univers e-dextromet 3-11 by mouth 4 it y of horphan 00:00: (four) [place] 6.25-15 00 times Medical mg/5 mL daily as Branch syrup needed for Cough or Cold symptoms. azithromyci 2019 Yes [id number] 250mg Take 1 Univers n 250 mg 3-11 tablet by ity of tablet 00:00: mouth [place] [address] SEE-INSTRU Medical CTIONS. Branch Take 500 mg day 1, then 250 mg days 2 to 5. promethazin Yes [id number] 5mL Take 5 mL Univers e-dextromet 3-11 by mouth 4 it y of horphan 00:00: (four) [place] 6.25-15 00 times Medical mg/5 mL daily as Branch syrup needed for Cough or Cold symptoms. azithromyci 2018-0 Yes [id number] 250mg Take 1 Univers n 250 mg 3-11 tablet by ity of tablet 00:00: mouth [place] 00 SEE-INSTRU Medical CTIONS. Branch Take 500 mg day 1, then 250 mg days 2 to 5. promethazin 2018-0 Yes [id number] 5mL Take 5 mL Univers e-dextromet 3-11 by mouth 4 it y of horphan 00:00: (four) [place] 6.25-15 00 times Medical mg/5 mL daily as Branch syrup needed for Cough or Cold symptoms. Procedures This patient has no known procedures. Encounters Start End Encounter Admission Attending Care Care Encounter Source Date/Time Date/Time Type Type Clinicians Facility Department ID 2020-05-19 2020-05-19 Laboratory Lab, [facility] [id number] 11:44:27 12:04:27 Only Fam Pob I Health [id number] [place] [id number] Professio [phone] nal [facility] Office [address] 2020-05-19 2020-05-19 Laboratory Lab, [facility] Fam Pob I [facility] [id number] Univers 11:44:27 12:04:27 Only Moraima Stock Health [id number] ity of [place] [id number] [place] as Professio [phone] [place] dical [facility] [address] [place] [address] 2020-05-19 2020-05-19 Outpatient R [facility] [id number] Univers 11:20:00 11:20:00 [id number] ity [facility] 2020-05-19 2020-05-19 Outpatient R [facility] [id number] Univers 11:20:00 11:20:00 ity [facility] 2020-05-19 2020-05-19 Letter Doctor DUKES [id number] 00:00:00 00:00:00 (Out) Unassigned, YANIQUE [id number] [place] [facility] [phone] [facility] 2020-05-19 2020-05-19 Letter Doctor DUKES [id number] 00:00:00 00:00:00 (Out) Unassigned, YANIQUE [id number] ity of [place] [facility] [id number] [place] as [phone] [address] 2019-07-12 2019-07-12 Telephone JOSELYN Keith [id number] 00:00:00 00:00:00 [place] [facility] [id number] [place] [id number] Professio [phone] [place] [address] [address] 2019-07-12 2019-07-12 Telephone JOSELYN Keith [id number] [facility] 00:00:00 00:00:00 [place] [facility] [id number] ity of [place] [id number] [place] Professio [phone] [place] dical [address] Results This patient has no known results.
[2021-03-24] MEDS ORDERED: ACETAMINOPHEN 500 MG TAB ONE (21:12)
--- NOTE | 2021-03-24 21:12 | RAD REPORT ---
EXAM DESCRIPTION: RAD - Shoulder Right 2 View - 03/24/2021 8:56 pm CLINICAL HISTORY: Right shoulder pain FINDINGS: No fracture or dislocation is seen. No significant bone or joint abnormality seen
[2021-03-24 21:14] LABS: Absolute Lymphocytes (CBC) 2.2 K/uL (0.7-4.9); Basophils % 1.1 % (0-1.3); Hematocrit 41.8 % (36.0-45.0); Lymphocytes % 21.6 % (15.3-44.8); MPV 7.7 fL (7.6-11.3); RBC Red Blood Cell Count 4.65 M/uL (3.86-4.86)
[2021-03-24 21:17] LABS: Protime INR 0.96
[2021-03-24 21:28] LABS: ALT/SGPT 28 U/L (12-78); AST/SGOT 12 U/L (15-37); Albumin 3.3 g/dL (3.4-5.0); Alkaline Phosphatase 110 U/L (45-117); BUN Blood Urea Nitrogen 18 mg/dL (7-18); Bicarbonate 29 mmol/L (21-32); Bilirubin Direct < 0.1 mg/dL (0-0.2); Bilirubin Total 0.2 mg/dL (0.2-1.0); Glucose Level 110 mg/dL (74-106); Potassium 3.9 mmol/L (3.5-5.1); Protein, Total 8.3 g/dL (6.4-8.2); Sodium Level 143 mmol/L (136-145)
[2021-03-24] MEDS ORDERED: CLINDAMYCIN 600MG/D5W 0 MG/0 ML BAG IV ONE (23:23)
[2021-03-24] MEDS ORDERED: SMZ./TMP. 800/160 MG TABLET ONE (23:37)
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
[2021-03-24] MEDS ORDERED: CIPROFLOXACIN HCL 500 MG TAB ONE (23:40)
[2021-03-24] MEDS ORDERED: metroNIDAZOLE 500 MG TABLET ONE (23:40)
[2021-03-25 00:21] VITALS: BP 151/84; TEMP 98.1; O2SAT 97
--- NOTE | 2021-03-25 11:41 | RAD REPORT ---
EXAM DESCRIPTION: CT - Facial Bones W/ Mpr - 03/25/2021 6:55 am CLINICAL HISTORY: 55-year-old female with pain and swelling. COMPARISON: None. TECHNIQUE: Maxillofacial CT without contrast. This exam was performed according to our departmental dose optimization program which includes use of automated exposure control, adjustment of the mA and/ or kV according to patient size and/or use of iterative reconstruction technique. FINDINGS: Limited intracranial images demonstrate no evidence of intracranial hemorrhage, mass or ed bronwyn. The frontal sinuses, frontal-ethmoid recesses, anterior/posterior ethmoids, sphenoid sinuses, and max illary sinuses are well developed and clear. The osteomeatal complexes are patent. The nasal turbinates are within normal limits. The nasal septum is rightward deviated with osseous spur abutting the middle RIGHT turbinate. The cribriform plate and lamina papyraceae within normal limits. The osseous structures are unremarkable. The orbits are unremarkable. The optic nerves and globes appear intact. The periorbital soft tissues are within normal limits. Incidentally noted medialization of the bilateral internal carotid arteries. Multiple missing teeth and dental caries. Multiple periapical lucency present bilaterally of the maxi llary and mandibular teeth. IMPRESSION: 1. No clear areas of soft tissue swelling or specific findings are noted to suggest et iology of the patient's symptoms. 2. Multiple missing teeth and dental caries. Multiple periapical lucency present bilaterally of the maxillary and mandibular teeth. Electronically signed by: Milagro Singleton MD 03/24/2021 10:42 PM IT INFRASTRUCTURE MANAGER Due to temporary technical issues with the PACS/Fluency reporting system, reports are being signed by the in house radiologists without review as a courtesy to insure prompt reporting. The interpreting radiologist is fully responsible for the content of the report.
== END 2021-03-24 23:59 | disposition home or self-care (01) ==
LOC: ER 18:18
DX: M25.511 Pain in right shoulder (principal); K02.9 Dental caries, unspecified; F17.210 Nicotine dependence, cigarettes, uncomplicated; Z88.0 Allergy status to penicillin; Z88.1 Allergy status to other antibiotic agents; Z88.5 Allergy status to narcotic agent; Z88.6 Allergy status to analgesic agent; Z88.8 Allergy status to other drugs, medicaments and biological substances
CPT/HCPCS: 36415; 70486; 76377; 80048; 80076; 85025; 85610; 85730; 99284

== ENCOUNTER 2021-07-06 11:26 | Emergency (ER) | payer SELFPAY ==
--- OUTSIDE RECORDS SUMMARY | 2021-07-06 11:41 | XMS REPORT | Continuity of Care Document ---
:1965 Author Organization [facility] t Address [address] [place] [address] Care Team Providers Name Role Phone Phillip CHICAS, L Primary Care Physician Unavailable Doctor Unassigned, Name Attending Clinician Unavailable Lab, Fam Pob I Attending Clinician Unavailable Dayami RODIRGUEZ, A Attending Clinician Inna BERNABE, A Attending Clinician Payers Payer [...] 00:00: [place] Pap smear Pap smear 00 [facility] Branch History of History of Disease Active U nivers cervical cervical 3-15 ity of cancer cancer 00:00: [place] [facility] Acute Acute Disease Active 2018- [...] Un juana ins ty to See comments 7- and ity of adverse 00:00: paresthes [place] reaction 00 ias Medical s Branch IODINE DRUG Active High Anaphylaxis 2018-0 Unive rs INGREDI 7- ity of 00:00: [place] 00 Medical Branch AMOXICIL DRUG Active Hives 2018-0 Univers STEFF-POT 7- ity of CLAVULAN 00:00: [place] ATE 00 Medical Branch CLINDAMY DRUG Active Unknown-Cmnt 2018-0 Un juana DAYAMI INGREDI 7- ity of 00:00: [place] 00 [...] Active Unknown - 2018-0 Itching Un juana dayami ty to See comments 7- and ity of adverse 00:00: parathesi [place] reaction 00 as Medical s Branch Codeine Propensi Active Unknown - 2018-0 [facility] ers ty to See comments 11-06 out ity of adverse 00:00: [place] reaction [...] of adverse 00:00: [place] reaction Medical s Branch Social History Social Habit Start Date Stop Date Quantity Comments Source History of tobacco Cigarette Smoker University of use [facility] Exposure to Yes University of SARS-CoV-2 (event) [facility] Alcohol intake 2018-06-29 2018-06-29 Current University of 00:00:00 00:00:00 non-drinker of [facility] alcohol Branch (finding) Cigarettes smoked 2017-07-03 2017-07-03 Univers ity of current (pack per 00:00:00 00:00:00 [facility] ) - Reported Branch Cigarette 2017-07-03 2017-07-03 University of pack-years 00:00:00 00:00:00 [facility] Tobacco use and 2017-07-03 2017-07-03 Never used Universit y of exposure 00:00:00 00:00:00 [facility] Sex Assigned At [birth year] Universit y of 00:00:00 00:00:00 [facility] Smoking Status Start Date Stop Date Source Current every day smoker 2017-07-03 00:00:00 Uni versity of [facility] Medications Ordered Filled Start Stop Current Ordering Indication Dosage Frequency Signature Comments Components Source Medication Medication Date Date Medication? Clinician (SIG) Name Name melia Yes [id number] 250mg Take 1 Univers n 250 mg 3-11 tablet by ity of tablet 00:00: mouth [place] 00 SEE-INSTRU Medical CTIONS. Branch Take 500 mg day 1, then 250 mg days 2 to 5. promethazin 2019 Yes [id number] 5mL Take 5 mL Univers e-dextromet 3-11 by mouth 4 it y of horphan 00:00: (four) [place] 6.25-15 00 times Medical mg/5 mL daily as Branch syrup needed for Cough or Cold symptoms. melia 2019 Yes [id number] 250mg Take 1 Univers n 250 mg 3-11 tablet by ity of tablet 00:00: mouth [place] 00 SEE-INSTRU Medical CTIONS. Branch Take 500 mg day 1, then 250 mg days 2 to 5. promethazin 2019 Yes [id number] 5mL Take 5 mL Univers e-dextromet 3-11 by mouth 4 it y of horphan 00:00: (four) [place] 6.25-15 00 times Medical mg/5 mL daily as Branch syrup needed for Cough or Cold symptoms. azithromyci Yes [id number] 250mg Take 1 Univers n 250 mg 3-11 tablet by ity of tablet 00:00: mouth [place] 00 SEE-INSTRU Medical CTIONS. Branch Take 500 mg day 1, then 250 mg days 2 to 5. promethazin Yes [id number] 5mL Take 5 mL Univers e-dextromet 3-11 by mouth 4 it y of horphan 00:00: (four) [place] 6.25-15 00 times Medical mg/5 mL daily as Branch syrup needed for Cough or Cold symptoms. azithromyci Yes [id number] 250mg Take 1 Univers n 250 mg 3-11 tablet by ity of tablet 00:00: mouth [place] 00 SEE-INSTRU Medical CTIONS. Branch Take 500 mg day 1, then 250 mg days 2 to 5. promethazin Yes [id number] 5mL Take 5 mL Univers e-dextromet 3-11 by mouth 4 it y of horphan 00:00: (four) [place] 6.25-15 00 times Medical mg/5 mL daily as Branch syrup needed for Cough or Cold symptoms. Procedures Procedure Date / Time Performed Performing Clinician [facility] e EXTERNAL PROVIDER 2021-05-31 06:01:00 Doctor Unassnataliia, No Univ [facility] RECORDS Name Medical Branch Encounters Start End Encounter Admission Attending Care Care Encounter Source Date/Time Date/Time Type Type Clinicians Facility Department ID 2021-05-31 2021-05-31 Orders Doctor DUKES [id number] Univers 00:00:00 00:00:00 Only Unassigned, YANIQUE [id number] ity of [facility] [id number] [place] as [phone] Medi christin 009 Branch 2020-05-19 2020-05-19 Laboratory Lab, Adc [facility] [id number] 11:44:27 12:04:27 Only Fam Pob I Health [id number] [place] [id number] Professio [phone] nal [address] 2020-05-19 2020-05-19 Laboratory Lab, Adc Fam Pob I [facility] [id number] Univers 11:44:27 12:04:27 Only Moraima Stock A Health [id number] ity of [place] [id number] [place] as Professio [phone] [address] 2020-05-19 2020-05-19 Outpatient R [facility] [id number] Univers 11:20:00 11:20:00 [id number] ity [facility] 2020-05-19 2020-05-19 Outpatient R [facility] [id number] Univers 11:20:00 11:20:00 ity [facility] 2020-05-19 2020-05-19 Letter Doctor [place] [id number] 00:00:00 00:00:00 (Out) Unassigned, YANIQUE [id number] [facility] [phone] [facility] 2020-05-19 2020-05-19 Letter Doctor ROSELINE [id number] Univers 00:00:00 00:00:00 (Out) Unassigned, YANIQUE [id number] ity of [facility] [id number] [place] as [phone] [address] 2019-07-12 2019-07-12 Telephone JOSELYN Keith [id number] 00:00:00 00:00:00 [facility] [id number] [place] [id number] Professio [phone] nal [facility] [address] 2019-07-12 2019-07-12 Telephone JOSELYN Keith [id number] Univers 00:00:00 00:00:00 [facility] [id number] ity of [place] [id number] [place] as Professio [phone] [address] Results This patient has no known results.
[2021-07-06] MEDS ORDERED: NA CHLORIDE 0.9% 1,000 ML ONE (12:41)
[2021-07-06 12:47] LABS: Absolute Lymphocytes (CBC) 1.8 K/uL (0.7-4.9); Hematocrit 42.2 % (36.0-45.0); Lymphocytes % 20.7 % (15.3-44.8); MPV 7.8 fL (7.6-11.3); RBC Red Blood Cell Count 4.79 M/uL (3.86-4.86)
--- NOTE | 2021-07-06 13:05 | RAD REPORT ---
EXAM DESCRIPTION: CT - Head Brain Wo Cont - 07/06/2021 12:58 pm CLINICAL HISTORY: CONFUSED Headache, drowsiness COMPARISON: Facial Bones W/ Mpr dated 03/24/2021 TECHNIQUE: All CT scans are performed using dose optimization technique as appropriate and may inclu de automated exposure control or mA/KV adjustment according to patient size. FINDINGS: No intracranial hemorrhage, hydrocephalus or extra-axial fluid collection.No areas of brai n edema or evidence of midline shift. Mild mucoperiosteal thickening of the left maxillary antrum is seen. The paranasal sinuses and mastoi ds are otherwise clear. The calvarium is intact. IMPRESSION: No acute intracranial abnormality.
[2021-07-06 13:07] LABS: Potassium 3.8 mmol/L (3.5-5.1); Troponin High Sensitivity 4.3 pg/mL (<58.9)
--- NOTE | 2021-07-06 13:13 | RAD REPORT ---
EXAM DESCRIPTION: RAD - Chest Single View - 07/06/2021 12:45 pm CLINICAL HISTORY: CONGESTION Chest pain. COMPARISON: Chest Single View dated 01/04/2019; Chest Single View dated 08/05/2017; CHEST PA AND LAT 2 VIEW dated 10/17/2014; CHEST SINGLE VIEW dated 05/30/2014 FINDINGS: Portable technique limits examination quality. The lungs are grossly clear. The heart is normal in size. No displaced fractures. IMPRESSION: No acute intrathoracic process suspected.
[2021-07-06 14:02] LABS: Urine Blood 2+ (Negative); Urine Glucose Negative (Negative); Urine Protein Negative (Negative); Urine Specific Gravity >=1.030 (1.005-1.030)
--- NOTE | 2021-07-06 14:45 | EDPHYS ---
Physician Documentation [facility] Name: Norma Means Age: 55 yrs Sex: Female : 1965 Arrival Date: 07/06/2021 Time: 11:29 Bed 14 Private MD: ED Physician Alicia Jama HPI: 07/06 14:42 This 55 yrs old Female presents to ER via Ambulatory with complaints of High Blood ma2 Pressure, Weakness, Dizziness. 14:42 Onset: The symptoms/episode began/occurred gradually, 1 day(s) ago. Associated signs ma2 and symptoms: Pertinent negatives: dyspnea, lightheadedness, visual changes, weakness. Severity of symptoms: At its worst the blood pressure was moderate, in the emergency department the blood pressure is unchanged. The patient has not experienced similar symptoms in the past. Historical: - Allergies: 11:45 amoxicillin trihydrate; ll1 11:45 Augmentin; ll1 11:45 Clindamycin; ll1 11:45 Codeine; ll1 11:45 Demerol; ll1 11:45 Ibuprofen; ll1 11:45 Iodine; ll1 11:45 meperidine HCl; ll1 11:45 Morphine; ll1 11:45 PENICILLINS; ll1 11:45 potassium clavulanate; ll1 - PMHx: 11:45 Anxiety; cervical cancer; hypoglacemia; ll1 - PSHx: 11:45 Ankle-Right; section; Cholecystectomy; Knee-Left; tubal; ll1 - Immunization history:: Client reports having NOT received the Covid vaccine. Flu vaccine status is unknown. - Social history:: Smoking status: Patient reports the use of cigarette tobacco products, smokes one pack cigarettes per day. Patient/guardian denies using alcohol, street drugs, The patient lives with family. - Family history:: not pertinent. ROS: 14:42 Constitutional: Negative for fever, chills, and weight loss. ma2 14:42 All other systems are negative. Exam: 14:42 Constitutional: This is a well developed, well nourished patient who is awake, alert, ma2 and in no acute distress. Head/Face: Normocephalic, atraumatic. Eyes: Pupils equal round and reactive to light, extra-ocular motions intact. Lids and lashes normal. Conjunctiva and sclera are non-icteric and not injected. Cornea within normal limits. Periorbital areas with no swelling, redness, or edema. ENT: Nares patent. No nasal discharge, no septal abnormalities noted. Tympanic membranes are normal and external auditory canals are clear. Oropharynx with no redness, swelling, or masses, exudates, or evidence of obstruction, uvula midline. Mucous membranes moist. Neck: Trachea midline, no thyromegaly or masses palpated, and no cervical lymphadenopathy. Supple, full range of motion without nuchal rigidity, or vertebral point tenderness. No Meningismus. Chest/axilla: Normal chest wall appearance and motion. Nontender with no deformity. No lesions are appreciated. Cardiovascular: Regular rate and rhythm with a normal S1 and S2. No gallops, murmurs, or rubs. Normal PMI, no JVD. No pulse deficits. Respiratory: Lungs have equal breath sounds bilaterally, clear to auscultation and percussion. No rales, rhonchi or wheezes noted. No increased work of breathing, no retractions or nasal flaring. Abdomen/GI: Soft, non-tender, with normal bowel sounds. No distension or tympany. No guarding or rebound. No evidence of tenderness throughout. Back: No spinal tenderness. No costovertebral tenderness. Full range of motion. Skin: Warm, dry with normal turgor. Normal color with no rashes, no lesions, and no evidence of cellulitis. MS/ Extremity: Pulses equal, no cyanosis. Neurovascular intact. Full, normal range of motion. Neuro: Awake and alert, GCS 15, oriented to person, place, time, and situation. Cranial nerves II-XII grossly intact. Motor strength 5/5 in all extremities. Sensory grossly intact. Cerebellar exam normal. Normal gait. Vital Signs: 11:42 BP 154 / 77; Pulse 92; Resp 18; Temp 98.4; Pulse Ox 97% on R/A; Weight 90.72 kg; Height ll1 5 ft. 5 in. (165.10 cm); Pain 0/10; 12:52 BP 149 / 82; Pulse 95; Resp 18; Pulse Ox 99% on R/A; ss7 13:30 BP 130 / 54; Pulse 84; Resp 18; Pulse Ox 100% on R/A; ss7 15:00 BP 141 / 78; Pulse 86; Resp 18; Pulse Ox 99% on R/A; ss7 11:42 Body Mass Index 33.28 (90.72 kg, 165.10 cm) ll1 NIH Stroke Scale Scores: 12:52 NIHSS Score: 0 ss7 MDM: 14:42 Differential diagnosis:. ma2 14:43 Data reviewed: vital signs, nurses notes, EMS record. Counseling: I had a detailed [facility] discussion with the patient and/or guardian regarding: the historical points, exam findings, and any diagnostic results supporting the discharge/admit diagnosis, the presence of at least one elevated blood pressure reading (>120/80) during this emergency department visit, the need for outpatient follow up. Response to treatment: the patient's symptoms have markedly improved after treatment. 14:44 Patient medically screened. ma2 14:45 ED course: I offered to prescribe medication for headache however patient states that ma2 she does not take any medication except antibiotic. So she will pass on the prescription. 07/06 12:25 Order name: Basic Metabolic Panel; Complete Time: 14:06 [facility] 07/06 12:25 Order name: CBC with Diff; Complete Time: 14:06 [facility] 07/06 12:25 Order name: Troponin HS; Complete Time: 14:06 [facility] 07/06 12:25 Order name: XRAY Chest (1 view); Complete Time: 14:06 [facility] 07/06 12:30 Order name: CT Head Brain wo Cont; Complete Time: 14:06 [facility] 07/06 14:01 Order name: Urine Dipstick-Ancillary; Complete Time: 14:06 [facility] 07/06 12:25 Order name: EKG; Complete Time: 12:26 [facility] 07/06 12:25 Order name: Cardiac monitoring; Complete Time: 12:50 ok2 07/06 12:25 Order name: EKG - Nurse/Tech; Complete Time: 12:50 [facility] 07/06 12:25 Order name: IV Saline Lock; Complete Time: 12:39 [facility] 07/06 12:25 Order name: Labs collected and sent; Complete Time: 12:39 [facility] 07/06 12:25 Order name: O2 Per Protocol; Complete Time: 12:50 [facility] 07/06 12:25 Order name: O2 Sat Monitoring; Complete Time: 12:50 [facility] 07/06 12:30 Order name: Urine Dipstick-Ancillary (obtain specimen); Complete Time: 13:46 ma2 Administered Medications: 12:51 Drug: NS 0.9% 1000 ml Route: IV; Rate: 1 bolus; Site: left antecubital; ss7 13:50 Follow up: Response: No adverse reaction; IV Status: Completed infusion ss7 Disposition Summary: 07/06/21 14:44 Discharge Ordered Location: Home ma2 Condition: Stable ma2 Diagnosis - Tension-type headache ma2 Followup: ma2 - With: Private Physician - When: Tomorrow - Reason: If symptoms return, Continuance of care Discharge Instructions: - Discharge Summary Sheet ma2 - General Headache Without Cause ma2 Forms: - Medication Reconciliation Form ma2 - Thank You Letter ma2 - Antibiotic Education ma2 - Prescription Opioid Use ma2 NIH Stroke Scale - NIH Stroke Score Date: 07/06/2021 Time: 12:52 Total Score = 0 1a. Level of Consciousness (LOC) - 0(Alert) 1b. Level of Consciousness (LOC) (Month \T\ Age) - 0(Both) 1c. LOC Commands (Open \T\ Closes Eyes/Chief Maintenance Supervisor) - 0(Both) 2. Best Gaze (Lateral Gaze Paresis) - 0(Normal) 3. Visual Field Loss - 0(No visual loss) 4. Facial Palsy - 0(Normal) 5a. Left Arm: Motor (10-second hold) - 0(No drift) 5b. Right Arm: Motor (10-second hold) - 0(No drift) 6a. Left Leg: Motor (5-second hold - always test supine) - 0(No drift) 6b. Right Leg: Motor (5-second hold - always test supine) - 0(No drift) 7. Limb Ataxia (finger/nose \T\ heel/jack - test with eyes open) - 0(Absent) 8. Sensory Loss (pinprick arms/legs/face) - 0(Normal) 9. Best Language: Aphasia (description/naming/reading) - 0(No aphasia) 10. Dysarthria (speech clarity - read or repeat words) - 0(Normal) 11. Extinction and Inattention (visual/tactile/auditory/spatial/personal) - 0(No abnormality) Initials: ss7 Signatures: Dispatcher [employer] EDMS Alicia Jama MD MD ma2 Kym Rg RN RN ll1 Telma Armas, RN RN ss7
--- NOTE | 2021-07-06 14:45 | ER ---
Nurse's Notes [facility] Name: Norma Rocha Age: 55 yrs Sex: Female : 1965 Arrival Date: 07/06/2021 Time: 11:29 Bed 14 Private MD: Diagnosis: Tension-type headache Presentation: 07/06 11:42 Chief complaint: Patient states: BP elevated, weak, dizzy for 1 day. BP 161/80's, HR ll1 120. Fatigue, weak. A lot of stress right now. Coronavirus screen: Vaccine status: Patient reports being unvaccinated. Client denies travel out of the [place] in the last 14 days. At this time, the client does not indicate any symptoms associated with coronavirus-19. Ebola Screen: Patient denies travel to an Ebola-affected area in the 21 days before illness onset. No acute neurological deficit is noted. Initial Sepsis Screen: Does the patient meet any 2 criteria? No. Patient's initial sepsis screen is negative. Does the patient have a suspected source of infection? No. Patient's initial sepsis screen is negative. Risk Assessment: Do you want to hurt yourself or someone else? Patient reports no desire to harm self or others. Onset of symptoms was July 06, 2021. 11:42 Method Of Arrival: Ambulatory ll1 11:42 Acuity: MICHAEL 3 ll1 Stroke Activation: Symptom onset > 6 hours Physician: Stroke Attending; Name: ; Notified At: ; Arrived At: Physician: Chief Stroke Resident; Name: ; Notified At: ; Arrived At: Physician: Stroke Resident; Name: ; Notified At: ; Arrived At: Physician: ED Attending; Name: ; Notified At: ; Arrived At: Physician: ED Resident; Name: ; Notified At: ; Arrived At: Historical: - Allergies: 11:45 amoxicillin trihydrate; ll1 11:45 Augmentin; ll1 11:45 Clindamycin; ll1 11:45 Codeine; ll1 11:45 Demerol; ll1 11:45 Ibuprofen; ll1 11:45 Iodine; ll1 11:45 meperidine HCl; ll1 11:45 Morphine; ll1 11:45 PENICILLINS; ll1 11:45 potassium clavulanate; ll1 - PMHx: 11:45 Anxiety; cervical cancer; hypoglacemia; ll1 - PSHx: 11:45 Ankle-Right; section; Cholecystectomy; Knee-Left; tubal; ll1 - Immunization history:: Client reports having NOT received the Covid vaccine. Flu vaccine status is unknown. - Social history:: Smoking status: Patient reports the use of cigarette tobacco products, smokes one pack cigarettes per day. Patient/guardian denies using alcohol, street drugs, The patient lives with family. - Family history:: not pertinent. Screenin:52 Abuse screen: Denies threats or abuse. Nutritional screening: No deficits noted. ss7 Tuberculosis screening: No symptoms or risk factors identified. Fall Risk IV access (20 points). Assessment: 12:52 General: Appears in no apparent distress. Behavior is calm, cooperative, appropriate ss7 for age. Pain: Denies pain. Neuro: Level of Consciousness is awake, alert, obeys commands, Oriented to person, place, time, situation, Cardiovascular: Heart tones S1 S2. Respiratory: Breath sounds are clear bilaterally. GI: No deficits noted. : No deficits noted. EENT: No deficits noted. Derm: No deficits noted. Musculoskeletal: No deficits noted. 12:55 The patient tolerated 90mL of water. No drooling, immediate coughing, gurgling, or ss7 clearing of the throat was noted. Vital Signs: 11:42 BP 154 / 77; Pulse 92; Resp 18; Temp 98.4; Pulse Ox 97% on R/A; Weight 90.72 kg; Height ll1 5 ft. 5 in. (165.10 cm); Pain 0/10; 12:52 BP 149 / 82; Pulse 95; Resp 18; Pulse Ox 99% on R/A; ss7 13:30 BP 130 / 54; Pulse 84; Resp 18; Pulse Ox 100% on R/A; ss7 15:00 BP 141 / 78; Pulse 86; Resp 18; Pulse Ox 99% on R/A; ss7 11:42 Body Mass Index 33.28 (90.72 kg, 165.10 cm) ll1 NIH Stroke Scale Scores: 12:52 NIHSS Score: 0 ss7 ED Course: 11:29 Patient arrived in ED. ja2 11:45 Triage completed. ll1 11:45 Arm band placed on Patient placed in an exam room, on a stretcher. ll1 12:23 Alicia Jama MD is Attending Physician. ma2 12:32 Telma Armas, YISEL is Primary Nurse. ss7 12:39 Basic Metabolic Panel Sent. tp1 12:39 CBC with Diff Sent. tp1 12:39 Troponin HS Sent. tp1 12:39 Inserted saline lock: 20 gauge in left antecubital area, using aseptic technique. Blood tp1 collected. 12:40 Bed in low position. Call light in reach. tp1 12:45 XRAY Chest (1 view) In Process Unspecified. EDMS 12:50 Basic Metabolic Panel Sent. ss7 12:50 Troponin HS Sent. ss7 12:52 No provider procedures requiring assistance completed. ss7 12:57 CT Head Brain wo Cont In Process Unspecified. EDMS 15:02 IV discontinued, intact. ss7 Administered Medications: 12:51 Drug: NS 0.9% 1000 ml Route: IV; Rate: 1 bolus; Site: left antecubital; ss7 13:50 Follow up: Response: No adverse reaction; IV Status: Completed infusion 7 Outcome: 14:44 Discharge ordered by . ma2 15:02 Discharged to home ambulatory. ss7 15:02 Condition: good 15:02 Discharge instructions given to patient, Instructed on discharge instructions, follow up and referral plans. Demonstrated understanding of instructions, follow-up care. 15:10 Patient left the ED. ss7 NIH Stroke Scale - NIH Stroke Score Date: 07/06/2021 Time: 12:52 Total Score = 0 1a. Level of Consciousness (LOC) - 0(Alert) 1b. Level of Consciousness (LOC) (Month \T\ Age) - 0(Both) 1c. LOC Commands (Open \T\ Closes Eyes/Entry Tech) - 0(Both) 2. Best Gaze (Lateral Gaze Paresis) - 0(Normal) 3. Visual Field Loss - 0(No visual loss) 4. Facial Palsy - 0(Normal) 5a. Left Arm: Motor (10-second hold) - 0(No drift) 5b. Right Arm: Motor (10-second hold) - 0(No drift) 6a. Left Leg: Motor (5-second hold - always test supine) - 0(No drift) 6b. Right Leg: Motor (5-second hold - always test supine) - 0(No drift) 7. Limb Ataxia (finger/nose \T\ heel/jack - test with eyes open) - 0(Absent) 8. Sensory Loss (pinprick arms/legs/face) - 0(Normal) 9. Best Language: Aphasia (description/naming/reading) - 0(No aphasia) 10. Dysarthria (speech clarity - read or repeat words) - 0(Normal) 11. Extinction and Inattention (visual/tactile/auditory/spatial/personal) - 0(No abnormality) Initials: ss7 Signatures: Dispatcher [employer] EDMS Alicia Jama MD MD ma2 Kym Rg, RN RN ll1 Una Nava Tiffany tp1 Telma Armas RN RN ss7 Corrections: (The following items were deleted from the chart) 13:50 12:57 BP 107 / 73 Supine; ss7 ss7 13:50 12:57 BP 113 / 60 Sitting; ss7 ss7 13:50 12:57 BP 98 / 66 Standing; ss7 ss7
[2021-07-06 15:21] VITALS: TEMP 98.4
[2021-07-06 15:25] VITALS: BP 141/78; O2SAT 99
--- NOTE | 2021-07-09 08:27 | EKG ---
Test Date: 2021-07-06 Test Time: 11:45:30 Air And Hydronic Balancing Technician: PONCHO MEASUREMENT RESULTS: Intervals: Rate: 98 AL: 132 QRSD: 88 QT: 374 QTc: 477 [place]: P: 47 AL: 132 QRS: -35 T: 7 INTERPRETIVE STATEMENTS: Normal sinus rhythm Left axis deviation Voltage criteria for left ventricular hypertrophy Cannot rule out Inferior infarct, age undetermined Abnormal ECG Compared to ECG 10/11/2020 21:46:49 Myocardial infarct finding now present Electronically Signed On 07-09-21 08:22:39 CDT by Shayne Live
== END 2021-07-06 15:10 | disposition home or self-care (01) ==
LOC: ER 11:26
DX: G44.209 Tension-type headache, unspecified, not intractable (principal); F17.210 Nicotine dependence, cigarettes, uncomplicated; Z88.0 Allergy status to penicillin; Z88.1 Allergy status to other antibiotic agents; Z88.5 Allergy status to narcotic agent; Z88.6 Allergy status to analgesic agent; Z88.8 Allergy status to other drugs, medicaments and biological substances
CPT/HCPCS: 36415; 70450; 71045; 80048; 81003; 84484; 85025; 93005; 96360; 99284; J7030

== ENCOUNTER 2022-05-13 11:00 | Emergency (ER) | payer SELFPAY ==
--- OUTSIDE RECORDS SUMMARY | 2022-05-13 11:04 | XMS REPORT | Continuity of Care Document ---
:1965 Author Organization [facility] t Address [address] [place] [address] Care Team Providers Name Role Phone Phillip CHICAS, Quentin Peterson Primary Care Physician Unavailable Doctor Unassigned, [place] Attending Clinician Unavailable Lab, Adc Fam Pob I Attending Clinician Unavailable Moraima Ybarra Attending Clinician Arpita Keith MD Attending Clinician Payers Payer Name Policy Type [...] 00:00: [place] Pap smear Pap smear 00 [facility] christin Branch History of History of Disease Active U nivers cervical cervical 3-15 ity of cancer cancer 00:00: [place] 00 Medical Branch Acute Acute Disease Active 2017- Univers nonseasona nonseasona 3-15 it [place] rh[place] rhinitis 00 Medica l due to due to Branch other other allergen allergen Allergies, Adverse Reactions, Alerts Allergy Allergy Status Severity Reaction(s) Onset Inactive Treating Comm ents Source Name Type Date Date Clinician Morphine Propensi Active Nausea 2017- Univer s ty to and/or 11-06 ity of adverse [...] AMOXICIL DRUG Active Hives 2018-0 Univers STEFF-POT - ity of CLAVULAN 00:00: [place] ATE 00 Medical Branch CLINDAMY DRUG Active Unknown-Cmnt 2018-0 Un juana DAYAMI INGREDI 11-06 ity of 00:00: [place] 00 [...] parathesi Univers n ty to See comments 7 as ity of adverse 00:00: [place] reaction 00 Medical s Branch Iodine Propensi Active Anaphylaxis And Uni vers ty to 7-19 shellfish ity of adverse 00:00: [place] reaction 00 [facility] Social History Social Habit Start Date Stop Date Quantity Comments Source History of tobacco Cigarette Smoker University of use [facility] Exposure to Yes University of SARS-CoV-2 (event) [facility] Alcohol intake 2018-06-29 2018-06-29 Current University of 00:00:00 00:00:00 non-drinker of [facility] alcohol [place] (finding) Cigarettes smoked 2017-07-03 2017-07-03 Univers ity of current (pack per 00:00:00 00:00:00 [facility] [place] [facility] ) - Reported Branch Cigarette 2017-07-03 2017-07-03 University of pack-years 00:00:00 00:00:00 [facility] Tobacco use and 2017-07-03 2017-07-03 Never used Universit y of exposure 00:00:00 00:00:00 [facility] Sex Ass[birth year] At [birth year] Universit y of 00:00:00 00:00:00 [facility] Smoking Status Start Date Stop Date Source Current every day smoker 2017-07-03 00:00:00 Uni versity of [facility] Medications Ordered Filled Start Stop Current Ordering Indication Dosage Frequency Signature Comments Components Source Medication Medication Date Date Medication? Clinician (SIG) Name Name brendaori Yes [id number] 250mg Take 1 Univers n 250 mg 3-11 tablet by ity of tablet 00:00: mouth [place] 00 SEE-INSTRU Medical CTIONS. Branch Take 500 mg day 1, then 250 mg days 2 to 5. promethazin Yes [id number] 5mL Take 5 mL Univers e-dextromet 3-11 by mouth 4 it y of horphan 00:00: (four) [place] 6.25-15 00 times Medical mg/5 mL daily as Branch syrup needed for Cough or Cold symptoms. melia Yes [id number] 250mg Take 1 Univers n 250 mg 3-11 tablet by ity of tablet 00:00: mouth [place] 00 SEE-INSTRU Medical CTIONS. Branch Take 500 mg day 1, then 250 mg days 2 to 5. promethazin Yes [id number] 5mL Take 5 mL Univers e-dextromet 3-11 by mouth 4 it y of horphan 00:00: (four) [place] 6.25-15 00 times Medical mg/5 mL daily as Branch syrup needed for Cough or Cold symptoms. azithromyci Yes [id number] 250mg Take 1 Univers n 250 mg 3-11 tablet by ity of tablet 00:00: mouth [place] 00 SEE-INSTRU Medical CTIONS. Branch Take 500 mg day 1, then 250 mg days 2 to 5. promethazin Yes [id number] 5mL Take 5 mL Univers e-dextromet 3-11 by mouth 4 it y of horphan 00:00: (four) [place] 6.25-15 00 times Medical mg/5 mL daily as Branch syrup needed for Cough or Cold symptoms. azithromyci Yes [id number] 250mg Take 1 Univers n 250 mg 3-11 tablet by ity of tablet 00:00: mouth 00 SEE-INSTRU Medical CTIONS. Branch Take 500 mg day 1, then 250 mg days 2 to 5. promethazin Yes [id number] 5mL Take 5 mL Univers e-dextromet 3-11 by mouth 4 it y of horphan 00:00: (four) [place] 6.25-15 00 times Medical mg/5 mL daily as Branch syrup needed for Cough or Cold symptoms. azithromyci Yes [id number] 250mg Take 1 Univers n 250 mg 3-11 tablet by ity of tablet 00:00: mouth [place] 00 SEE-INSTRU Medical CTIONS. Branch Take 500 mg day 1, then 250 mg days 2 to 5. promethazin Yes [id number] 5mL Take 5 mL Univers e-dextromet 3-11 by mouth 4 it y of horphan 00:00: (four) [place] 6.25-15 00 times Medical mg/5 mL daily as Branch syrup needed for Cough or Cold symptoms. Procedures Procedure Date / Time Performed Performing Clinician [facility] e EXTERNAL PROVIDER 2021-07-18 05:01:00 Doctor Unassigned, No Univ ersity [facility] RECORDS Name Medical Branch EXTERNAL PROVIDER 2021-05-31 06:01:00 Doctor Unassigned, No [facility] RECORDS Name Medical Branch Encounters Start End Encounter Admission Attending Care Care Encounter Source Date/Time Date/Time Type Type Clinicians Facility Department ID 2021-07-18 2021-07-18 Orders Doctor ROSELINE 1.2.840.114 [id number] Univers 00:00:00 00:00:00 Only Unassigned, YANIQUE [id number] ity of [place] [facility] [id number] [place] as [phone] [address] 2021-05-31 2021-05-31 Orders Doctor ROSELINE 1.2.840.114 [id number] Univers 00:00:00 00:00:00 Only Unassigned, YAINQUE [id number] ity of [place] [facility] [id number] [place] as [phone] [address] 2020-05-19 2020-05-19 Laboratory Lab, [facility] Fam Pob I [facility] 1.2. [id number] Univers 11:44:27 12:04:27 Only Moraima [facility] [id number] [place] [id number] [place] as Professio [phone] Fl dical [address] Office [address] 2020-05-19 2020-05-19 Laboratory Lab, [facility] 1.2.840.114 [id number] 11:44:27 12:04:27 Only Fam Pob I Health [id number] [place] [id number] Professio [phone] nal [facility] Office [address] 2020-05-19 2020-05-19 Outpatient R [facility] [id number] Univers 11:20:00 11:20:00 ity of [facility] 2020-05-19 2020-05-19 Letter Doctor DUKES 1.2.840.114 [id number] Univers 00:00:00 00:00:00 (Out) Unassigned, YANIQUE [id number] ity of [place] [facility] [id number] [place] as [phone] [address] 2020-05-19 2020-05-19 Letter Doctor DUKES [id number] 00:00:00 00:00:00 (Out) Unassigned, YANIQUE [id number] [place] [facility] [id number] 2019-07-12 2019-07-12 Telephone [facility] 1.2.840.114 [id number] [facility] 00:00:00 00:00:00 [facility] [id number] [place] [id number] [place] as Professio [phone] [address] Office [address] 2019-07-12 2019-07-12 Telephone [facility] 1.2.840.114 [id number] 00:00:00 00:00:00 [facility] [id number] [place] [id number] Professio [phone] [place] [address] [address] Results This patient has no known results.
[2022-05-13] MEDS ORDERED: DICYCLOMINE HCL 10 MG CAP ONE (11:54)
[2022-05-13] MEDS ORDERED: ASPIRIN 81 MG CHEWABLE TABLET ONE (11:54)
[2022-05-13] MEDS ORDERED: PANTOPRAZOLE 40 MG INJ ONE (11:54)
--- NOTE | 2022-05-13 13:23 | EDPHYS ---
Physician Documentation [facility] Name: Norma Rocha Age: 56 yrs Sex: Female : 1965 Arrival Date: 05/13/2022 Time: 11:04 Bed IW1 Private MD: ED Physician Jerald Castillo HPI: 05/13 11:46 This 56 yrs old Female presents to ER via Ambulatory with complaints of Abd Pain > 50 snw y/o, RUQ. 11:46 The patient presents with abdominal pain in the upper abdomen, in the right upper snw quadrant. Onset: The symptoms/episode began/occurred suddenly, 1 day(s) ago, and became persistent. The symptoms do not radiate. Associated signs and symptoms: Pertinent positives: nausea. The symptoms are described as crampy. Severity of pain: At its worst the pain was moderate. It is unknown whether or not the patient has had similar symptoms in the past. The patient has not recently seen a physician. 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 - Social history:: Smoking status: Patient reports the use of cigarette tobacco products, smokes one pack cigarettes per day. ROS: 13:02 Constitutional: Negative for fever, chills, and weight loss, Eyes: Negative for injury, snw pain, redness, and discharge, ENT: Negative for injury, pain, and discharge, Neck: Negative for injury, pain, and swelling, Cardiovascular: Negative for chest pain, palpitations, and edema, Respiratory: Negative for shortness of breath, cough, wheezing, and pleuritic chest pain. 13:02 Back: Negative for injury and pain, : Negative for injury, bleeding, discharge, and swelling. 13:02 Abdomen/GI: Positive for abdominal pain, of the right upper quadrant. Exam: 11:44 Constitutional: This is a well developed, well nourished patient who is awake, alert, snw and in no acute distress. Head/Face: Normocephalic, atraumatic. Eyes: Pupils equal round and reactive to light, extra-ocular motions intact. Lids and lashes normal. Conjunctiva and sclera are non-icteric and not injected. Cornea within normal limits. Periorbital areas with no swelling, redness, or edema. ENT: Nares patent. No nasal discharge, no septal abnormalities noted. Tympanic membranes are normal and external auditory canals are clear. Oropharynx with no redness, swelling, or masses, exudates, or evidence of obstruction, uvula midline. Mucous membranes moist. Neck: Trachea midline, no thyromegaly or masses palpated, and no cervical lymphadenopathy. Supple, full range of motion without nuchal rigidity, or vertebral point tenderness. No Meningismus. Chest/axilla: Normal chest wall appearance and motion. Nontender with no deformity. No lesions are appreciated. Cardiovascular: Regular rate and rhythm with a normal S1 and S2. No gallops, murmurs, or rubs. Normal PMI, no JVD. No pulse deficits. Respiratory: Lungs have equal breath sounds bilaterally, clear to auscultation and percussion. No rales, rhonchi or wheezes noted. No increased work of breathing, no retractions or nasal flaring. Back: No spinal tenderness. No costovertebral tenderness. Full range of motion. Skin: Warm, dry with normal turgor. Normal color with no rashes, no lesions, and no evidence of cellulitis. MS/ Extremity: Pulses equal, no cyanosis. Neurovascular intact. Full, normal range of motion. Neuro: Awake and alert, GCS 15, oriented to person, place, time, and situation. Cranial nerves II-XII grossly intact. Motor strength 5/5 in all extremities. Sensory grossly intact. Cerebellar exam normal. Normal gait. Psych: Awake, alert, with orientation to person, place and time. Behavior, mood, and affect are within normal limits. 11:44 Abdomen/GI: Inspection: abdomen appears normal, Bowel sounds: normal, Palpation: moderate abdominal tenderness, in the right upper quadrant, Indicators: Pitts's sign is positive, s/p cholecystectomy. Vital Signs: 11:10 BP 166 / 86; Pulse 88; Resp 16; Temp 98.1(O); Pulse Ox 100% on R/A; Weight 90.72 kg; ss Height 5 ft. 5 in. (165.10 cm); Pain 0/10; 11:10 Body Mass Index 33.28 (90.72 kg, 165.10 cm) MDM: 11:13 Patient medically screened. snw 11:45 Differential diagnosis: pneumonia, retained duct stone, AL. Data reviewed: vital signs, snw nurses notes. Care significantly affected by the following chronic conditions: anxiety. 13:02 Special discussion: Pt unable to be contacted. Stated she felt better but did not snw notify staff of any intent to leave prior to workup complete. 13:23 ED course: Pt left from triage after my exam. States "you made me feel better". Unable snw to locate pt for completion of workup. Pt left ED, was called by Nursing personnel to locate both in ED, Radiology, and on her Cell. Pt left ED.. Administered Medications: No medications were administered Disposition: 19:18 Co-signature as Attending Physician, Jerald Castillo DO I was immediately available on-site ms3 in the Emergency Department for consultation in the care of the patient. Disposition Summary: 05/13/22 13:23 Discharge Ordered Location: Home snw Condition: Stable snw Diagnosis - Upper abdominal pain, unspecified snw Followup: snw - With: Emergency Department - When: As needed - Reason: Worsening of condition Followup: snw - With: Private Physician - When: 1 - 2 days - Reason: Recheck today's complaints, Continuance of care, Re-evaluation by your physician Forms: - Medication Reconciliation Form snw - Thank You Letter snw - Antibiotic Education snw - Prescription Opioid Use snw Signatures: Dispatcher [employer] Winsome Piper FNP-C FNP-Ellen Yee RN RN Jerald Rodriguez DO DO ms3 Corrections: (The following items were deleted from the chart) 11:13 11:12 Social history: Smoking status: Patient denies any tobacco usage or history of. ssss 12:57 11:29 Chest Pa And Lat (2 Views)+RAD.RAD.BRZ ordered. EDMS EDMS 12:58 11:36 Chest Single View+RAD.RAD.BRZ ordered. EDMS EDMS 12:58 11:36 Abdomen Limited+US.RAD.BRZ ordered. EDMS EDMS
--- NOTE | 2022-05-13 13:23 | ER ---
Nurse's Notes [facility] Name: Norma Means Age: 56 yrs Sex: Female : 1965 Arrival Date: 05/13/2022 Time: 11:04 Bed IW1 Private MD: Diagnosis: Upper abdominal pain, unspecified Presentation: 05/13 11:10 Chief complaint: Patient states: RUQ pain that began yesterday. Denies nausea today, ss but was nauseous yesterday. Pt reports that pain is worse when moving. Coronavirus screen: Client denies travel out of the [place] in the last 14 days. Ebola Screen: Patient denies exposure to infectious person. Patient denies travel to an Ebola-affected area in the 21 days before illness onset. Initial Sepsis Screen: Does the patient meet any 2 criteria? No. Patient's initial sepsis screen is negative. Does the patient have a suspected source of infection? No. Patient's initial sepsis screen is negative. Risk Assessment: Do you want to hurt yourself or someone else? Patient reports no desire to harm self or others. Onset of symptoms was May 12, 2022. 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 - Social history:: Smoking status: Patient reports the use of cigarette tobacco products, smokes one pack cigarettes per day. Assessment: 11:21 Reassessment: No answer. Unable to locate patient in ER lobby. ss 12:00 Reassessment: pt not in lobby or Xray or US. iw Vital Signs: 11:10 BP 166 / 86; Pulse 88; Resp 16; Temp 98.1(O); Pulse Ox 100% on R/A; Weight 90.72 kg; ss Height 5 ft. 5 in. (165.10 cm); Pain 0/10; 11:10 Body Mass Index 33.28 (90.72 kg, 165.10 cm) ED Course: 11:04 Patient arrived in ED. mr 11:12 Triage completed. ss 11:12 Arm band placed on right wrist. ss 11:13 Winsome Griffin FNP-C is PHCP. snw 11:13 Jerald Castillo DO is Attending Physician. snw 11:49 Brandy Menezes, RN is Primary Nurse. ld1 13:49 No provider procedures requiring assistance completed. Patient did not have IV access ss during this emergency room visit. Administered Medications: No medications were administered Outcome: 13:23 Discharge ordered by MD. snw 13:49 Patient left the ED. ss Signatures: Winsome Griffin FNP-C INCLUSION SPECIAL EDUCATION TEACHER-Niko Neisha Mckeon Marcelle Thomas, YISEL MORILLO Ellen Guzman RN RN Brandy Menezes, RN RN ld1 Corrections: (The following items were deleted from the chart) 11:13 11:12 Social history: Smoking status: Patient denies any tobacco usage or history of. ssss
[2022-05-13 14:38] VITALS: BP 166/86; TEMP 98.1; O2SAT 100
== END 2022-05-13 13:49 | disposition home or self-care (01) ==
LOC: ER 11:00
DX: R10.11 Right upper quadrant pain (principal)
CPT/HCPCS: 99281; C9113